=== PATIENT | male | born 1940 | race African-American/Black ===

== ENCOUNTER 2016-11-26 21:16 | Observation (INO) | payer MEDICARE ==
[~2016-11-26] VITALS: Ht 185.4 cm; Wt 82.6 kg
--- NOTE | 2016-11-26 22:07 | PHYS DOC ---
Adult General HPI HPI Patient is a 76 year old male presents emergency room via EMS for what was initially reported as a syncopal episode. I went in to see the patient, he was alone in the bed in no acute distress. I asked the patient what was here in the emergency room he said, "because I fell out." Patient had no complaints for me at the time of initial history and physical examination. Patient's daughter presents to the bedside approximately 20 minutes after initially seeing the patient. She informs me that patient was sitting in a recliner, fully alert and responsive at 1944. She states that she and her daughter went to the store and came back about an hour later. She reports that her father/the patient was not responding to her at 2044. She called EMS. She states that as patient was being handled by EMS, he became aroused. She states that at the time he was being loaded into the ambulance, he was fully alert and responding appropriately. According to both patient and his daughter, there've not been episodes like this in the past. She denies any history of cardiac disease, hypertension, hypercholesterolemia or diabetes. She denies any history of strokes or mini strokes. Patient does have a history of Parkinson's disease which she takes 2 medications for this. Now the patient, nor his daughter, report any recent illnesses or changes in medications. Review of Systems Review of Systems Constitutional: Denies fever or chills [] Eyes: Denies change in visual acuity, redness, or eye pain [] HENT: Denies nasal congestion or sore throat [] Respiratory: Denies cough or shortness of breath [] Cardiovascular: No additional information not addressed in HPI [] GI: Denies abdominal pain, nausea, vomiting, bloody stools or diarrhea [] : Denies dysuria or hematuria [] Musculoskeletal: Denies back pain or joint pain [] Integument: Denies rash or skin lesions [] Neurologic: Denies headache, focal weakness or sensory changes [] Endocrine: Denies polyuria or polydipsia [] Current Medications Current Medications Current Medications Medications (Trade) Dose Ordered Sig/Charline Start Time Stop Time Status Last Admin Dose Admin Hydralazine HCl (Apresoline) 10 mg 1X ONCE 11/26/16 22:30 11/26/16 22:31 DC 11/26/16 23:24 10 MG Sodium Chloride (Iv Sodium Chloride 0.9% 500ml Bag) 500 ml @ 500 mls/hr 1X ONCE 11/26/16 22:30 11/26/16 23:29 DC 11/26/16 22:33 500 MLS/HR Allergies Allergies Allergies Coded Allergies Type Severity Reaction Last Updated Verified No Known Drug Allergies 11/26/16 No Physical Exam Physical Exam Constitutional: Well developed, well nourished, no acute distress, non-toxic appearance. Patient is lying in a low semi-Fowlers position in no acute distress. Patient is hypertensive with a systolic pressure of 216. HENT: Normocephalic, atraumatic, bilateral external ears normal, oropharynx moist, no oral exudates, nose normal. [] Eyes: EOMI, conjunctiva normal, no discharge. Right eye with a hypertrophic, opaque lobe. Left eye is normal in appearance with a round pupil that is responsive to light. Extraocular motions are intact and 6 cardinal positions of gaze. Neck: Normal range of motion, no tenderness, supple, no stridor. Cardiovascular:Heart rate regular rhythm, grade 2 systolic murmur Lungs & Thorax: Bilateral breath sounds clear to auscultation Abdomen: Bowel sounds normal, soft, no tenderness, no masses, no pulsatile masses. [] Skin: Warm, dry, no erythema, no rash. [] Back: No tenderness, no CVA tenderness. [] Extremities: No tenderness, no cyanosis, no clubbing, ROM intact, no edema. [] Neurologic: Alert and oriented X 3, patient noted to have a fine motor tremor to bilateral upper lower extremities. He is able to move all 4 extremities without drift. He is able perform rapid alternating movement and [id number] with only experiencing the tremor. Seated Romberg is negative for drift. Patient responds spontaneously and appropriately to questions. Psychologic: Affect normal, judgement normal, mood normal. This is a very pleasant gentleman who is smiling. Current Patient Data Vital Signs Vital Signs Date Time Temp Pulse Resp B/P Pulse Ox O2 Delivery O2 Flow Rate FiO2 11/26/16 23:24 99 162/82 11/26/16 21:20 97.9 18 98 Room Air 97.9 Lab Values Laboratory Tests Test 11/26/16 23:01 11/26/16 23:08 White Blood Count 4.2x10^3/uL (4.0-11.0) Red Blood Count 4.79x10^6/uL (4.30-5.70) Hemoglobin 13.9g/dL (13.0-17.5) Hematocrit 41.7% (39.0-53.0) Mean Corpuscular Volume 87fL (79-100) Mean Corpuscular Hemoglobin 29pg (25-35) Mean Corpuscular Hemoglobin Concent 33g/dL (31-37) Red Cell Distribution Width 15.1% (11.5-14.5) H Platelet Count 152x10^3/uL (140-400) Neutrophils (%) (Auto) 63% (31-73) Lymphocytes (%) (Auto) 24% (24-48) Monocytes (%) (Auto) 11% (0-9) H Eosinophils (%) (Auto) 3% (0-3) Basophils (%) (Auto) 0% (0-3) Neutrophils # (Auto) 2.6x10^3uL (1.8-7.7) Lymphocytes # (Auto) 1.0x10^3/uL (1.0-4.8) Monocytes # (Auto) 0.4x10^3/uL (0.0-1.1) Eosinophils # (Auto) 0.1x10^3/uL (0.0-0.7) Basophils # (Auto) 0.0x10^3/uL (0.0-0.2) Sodium Level 146mmol/L (136-145) H Potassium Level 3.7mmol/L (3.5-5.1) Chloride Level 107mmol/L (98-107) Carbon Dioxide Level 29mmol/L (21-32) Anion Gap 10 (6-14) Blood Urea Nitrogen 19mg/dL (8-26) Creatinine 1.2mg/dL (0.7-1.3) Estimated GFR (Cockcroft-Gault) 70.9 BUN/Creatinine Ratio 16 (6-20) Glucose Level 93mg/dL (70-99) Calcium Level 9.2mg/dL (8.5-10.1) Magnesium Level 1.8mg/dL (1.8-2.4) Total Bilirubin 0.8mg/dL (0.2-1.0) Aspartate Amino Transferase (AST) 17U/L (15-37) Alanine Aminotransferase (ALT) 8U/L (16-63) L Alkaline Phosphatase 64U/L (46-116) Total Protein 7.8g/dL (6.4-8.2) Albumin 3.8g/dL (3.4-5.0) Albumin/Globulin Ratio 1.0 (1.0-1.7) Urine Collection Type Unknown Urine Color Yellow Urine Clarity Clear Urine pH 6.5 Urine Specific [place] 1.010 Urine Protein Negativemg/dL (NEG-TRACE) Urine Glucose (UA) Negativemg/dL (NEG) Urine Ketones (Stick) Negativemg/dL (NEG) Urine Blood Negative (NEG) Urine Nitrite Negative (NEG) Urine Bilirubin Negative (NEG) Urine Urobilinogen Dipstick 1.0mg/dL (0.2 mg/dL) Urine Leukocyte Esterase Negative (NEG) Urine RBC 1-2/HPF (0-2) Urine WBC 0/HPF (0-4) Urine Squamous Epithelial Cells Occ/LPF Urine Bacteria 0/HPF (0-FEW) Urine Hyaline Casts Occasional/HPF Urine Mucus Slight/LPF Laboratory Tests 11/26/16 23:01 Laboratory Tests 11/26/16 23:01 EKG EKG [] Radiology/Procedures Radiology/Procedures Noncontrast CT scan of patient's head shows no evidence of acute intracranial process. Portable AP chest shows no evidence of acute thoracic process. Course & Med Decision Making Course & Med Decision Making Patient's had an uneventful stay here in the emergency department. He displayed no evidence of aberrant neurologic processes. He is maintained hemodynamic stability during his stay here. Upon review of the EMS report to the nurse taking care of the patient, he was reported that patient was unresponsive and had a "low blood pressure" that rapidly returned to normal when patient was being handled and loaded into the ambulance. Family is hesitant to take patient home. Based on patient's age, medical history and event that happened tonight, patient will be admitted for observation to the telemetry unit for close monitoring. Dragon Disclaimer Dragon Disclaimer This electronic medical record was generated, in whole or in part, using a voice recognition dictation system. Departure Departure Impression: Primary Impression: Mental status alteration Disposition: ADMITTED INPATIENT Admitting Physician: Other (Dr Mathur) Condition: STABLE Referrals: JOSE GUPTA MD (PCP) STEVE SAHU Nov 26, 2016:07
[2016-11-26] MEDS ORDERED: IV NORMAL SALINE 500ML BAG 500 ML IV ONE (22:30)
[2016-11-26] MEDS ORDERED: hydrALAZINE 20 MG/ML VIAL. IVP ONE (22:30)
--- NOTE | 2016-11-26 23:02 | RAD ---
PROCEDURE CT head without intravenous contrast. HISTORY Found unresponsive at 2045 hours. Fully responsive now. Parkinson's disease. TECHNIQUE Axial images are obtained of the head from the skull base through the vertex without IV contrast Exposure: One or more of the following individualized dose reduction techniques were utilized for this examination: 1. Automated exposure control. 2. Adjustment of the mA and/or kV according to patient size. 3. Use of iterative reconstruction technique. COMPARISON None. FINDINGS The ventricles are appropriate in size, shape, and location for the patient's age.No obvious intracranial mass, mass-effect, midline shift, hemorrhage or obvious acute infarction is identified.Basilar cisterns are patent. Bone windows demonstrate no acute calvarial abnormality.The visualized paranasal sinuses appear clear. IMPRESSION No acute intracranial process. Please note that CT can be relatively insensitive to acute ischemic infarction for up to 24 hours after symptom onset. Electronically signed by: Trevor Islas MD (Nov 26, 2016 23:00:21)
[2016-11-26 23:12] LABS: BASO % 0 % (0-3); EOS % 3 % (0-3); HEMATOCRIT 41.7 % (39.0-53.0); HEMOGLOBIN 13.9 g/dL (13.0-17.5); LYMPH % 24 % (24-48); MEAN CORPUSCULAR HEMOGLOBIN 29 pg (25-35); MEAN CORPUSCULAR HGB CONC 33 g/dL (31-37); MEAN CORPUSCULAR VOLUME 87 fL (79-100); MONO % 11 % (0-9); NEUT % 63 % (31-73); PLATELET COUNT 152 x10^3/uL (140-400); RED BLOOD COUNT 4.79 x10^6/uL (4.30-5.70); RED CELL DISTRIBUTION WIDTH 15.1 % (11.5-14.5); WHITE BLOOD COUNT 4.2 x10^3/uL (4.0-11.0)
[2016-11-26 23:15] LABS: BILIRUBIN,URINE NEGATIVE (NEG); GLUCOSE,URINE NEGATIVE (NEG); NITRITE,URINE NEGATIVE (NEG); PH,URINE 6.5; PROTEIN,URINE NEGATIVE (NEG-TRACE)
[2016-11-26 23:23] LABS: BACTERIA,URINE 0 /HPF (0-FEW); SQUAMOUS EPITHELIAL CELL,UR OCC /LPF; WBC,URINE 0 /HPF (0-4)
[2016-11-26 23:28] LABS: CALCIUM 9.2 mg/dL (8.5-10.1); CREATININE 1.2 mg/dL (0.7-1.3); GFR 70.9; POTASSIUM 3.7 mmol/L (3.5-5.1)
[2016-11-26 23:31] LABS: ALBUMIN 3.8 g/dL (3.4-5.0); MAGNESIUM 1.8 mg/dL (1.8-2.4); TOTAL BILIRUBIN 0.8 mg/dL (0.2-1.0); TOTAL PROTEIN 7.8 g/dL (6.4-8.2)
--- NOTE | 2016-11-27 05:02 | ACF ---
Admit Criteria Forms Admit Criteria Forms Admit Criteria Forms X TELEMETRY CARE Telemetry Admission Guidelines (Place 'X' for any and all applicable criteria): Admission to telemetry [A] may be indicated for ANY ONE of the following(1)(2)(3 )(4)(5): [ ]I. Cardiac disease, including ANY ONE of the following (9)(10)(11)(12)(13 ): [ ]a) Postacute AR [ ]b) Low-risk patients with ST-segment elevation AR who have undergone successful percutaneous coronary intervention [ ]c) Unstable angina [ ]d) Suspected AR (until it is ruled out) [ ]e) Post cardiac surgery (first 48 to 72 hours unless complications occur) [ ]f) Acute arrhythmias (including significant tachycardia or bradycardia) [B] [ ]g) Firing of an implantable cardioverter defibrillator [C] [ ]h) Suspected pacemaker or implantable cardioverter defibrillator malfunction (10) [ ]i) New administration or adjustment of an antiarrhythmic drug [D ] [ ]j) Child admitted for acute congestive heart failure [ ]j) Long QT syndrome [ ]k) Advanced heart block (eg, second-degree Mobitz type II, third- degree heart block) [ ]l) Acute myocarditis or pericarditis [ ]m) Short-term (ambulatory or inpatient) monitoring after a cardiac procedure as indicated by ANY ONE of the following [E]: [ ]i) Electrophysiologic studies [ ]ii) Percutaneous coronary intervention with stent placement [ ]iii) Pacemaker placement with cardiac conduction defect [ ]iv) Implantable cardiac defibrillator placement [ ]II. Drug overdose or poisoning with substance that causes arrhythmias or QT prolongation (eg, phenothiazines, sympathomimetic agents, cyclic antidepressants, digitalis, antiarrhythmic drugs)(15) [ ]III. Short-term (ambulatory or inpatient) monitoring after therapeutic or diagnostic procedure requiring conscious sedation or anesthesia (eg, endoscopy, elective cardioversion) [ ]IV. Acute cerebrovascular even[F](18) [ ]V. Massive blood transfusion (eg, at least 10 units of packed red blood cells in 24 hours) [ ]. Variceal bleeding after endoscopy, sclerotherapy, or IV vasopressin [ ]VII. Uncorrected electrolyte abnormalities associated with an increased risk of dangerous arrhythmia [G]; examples include [ ]a) Hyperkalemia with attributable ECG changes [ ]b) Potassium greater than 6.5 mmol/L (mEq/L) in a patient without history of chronic renal disease [ ]c) Prolonged QT attributed to hypokalemia, hypomagnesemia, or hypocalcemia [ X]VIII.Unexplained syncope or other neurologic event suspected of being due to arrhythmia due to a finding that increases risk; examples include(19)(20)(21): [ ]a) High-risk ECG findings (eg, bifascicular block, bradycardia, abnormal QT interval, ventricular pre- excitation) [ ]b) History of previous syncope due to arrhythmia [ ]c) Abnormal ventricular function (eg, reduced ejection fraction ) [ ]d) Exertional or supine syncope [X ]e) Concerning syncope characteristics (eg, sudden loss of consciousness without prodrome) [ ]f) Family history of sudden [ ]g) Use of arrhythmogenic medication [ ]h) Suspected cardiac ischemia [ ]i) Known channelopathy (eg, long QT syndrome, Brugada syndrome, or catecholaminergic paroxysmal ventricular tachycardia) [ ]j) Known structural heart disease (eg, hypertrophic cardiomyopathy , severe valvular disease) [ ]k) Palpitations preceding syncope The original [employer] content created by [employer] has been revised. The portions of the content which have been revised are identified through the use of italic text or in bold, and [employer] has neither reviewed nor approved the modified material. All other unmodified content is copyright [employer]. Please see references footnoted in the original [employer] edition 2015 MARIANNA DAVIES Nov 27, 2016 05:02
--- NOTE | 2016-11-27 08:13 | RAD ---
Indication: Syncopal episode. Parkinson's. Technique: Upright portable chest radiograph was obtained. No comparison is available. Findings: Patient is slightly rotated. There may be minimal atelectasis in the lung bases. Heart is not enlarged. Pulmonary vasculature is mildly prominent although this could be accentuated given portable technique and low lung volume. Mild vascular congestion cannot be excluded. Degenerative changes are noted in the right shoulder. Leads overlie the patient. Impression: Low lung volume film. Minimal atelectasis in the lung bases suspected. Mild vascular congestion hard to exclude. Consider short-term follow-up PA and lateral films.
--- NOTE | 2016-11-27 09:11 | EKG ---
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
[2016-11-27] MEDS ORDERED: ONDANSETRON PF 4 MG/2 ML VIAL. IV PRN (12:45)
[2016-11-27] MEDS ORDERED: ALBUTEROL SULFATE 2.5 MG/3 ML NEBU. NEB PRN (12:45)
[2016-11-27] MEDS ORDERED: HYDROCODONE/APAP 5/325MG TABLET. PO PRN (12:45)
[2016-11-27] MEDS ORDERED: hydrALAZINE 20 MG/ML VIAL. IVP PRN (12:45)
[2016-11-27] MEDS ORDERED: ACETAMINOPHEN 325 MG TABLET. PO PRN (12:45)
--- NOTE | 2016-11-27 12:49 | PDOC1 ---
History and Physical Current Problem List Problem List Problems Medical Problems: (1) Mental status alteration Status: Acute Current Medications Current Medications Current Medications Medications (Trade) Dose Ordered Sig/Charline Start Time Stop Time Status Last Admin Dose Admin Acetaminophen (Tylenol) 325 mg PRN Q6HRS PRN 11/27/16 12:45 Acetaminophen/ Hydrocodone Bitart (Lortab 5/325) 1 tab PRN Q6HRS PRN 11/27/16 12:45 Albuterol Sulfate (Ventolin Neb Soln) 2.5 mg PRN Q4HRS PRN 11/27/16 12:45 Hydralazine HCl (Apresoline) 10 mg PRN Q4HRS PRN 11/27/16 12:45 Ondansetron HCl (Zofran) 4 mg PRN Q8HRS PRN 11/27/16 12:45 Sodium Chloride (Iv Sodium Chloride 0.9% 500ml Bag) 500 ml @ 500 mls/hr 1X ONCE 11/26/16 22:30 11/26/16 23:29 DC 11/26/16 22:33 500 MLS/HR Allergies Allergies Allergies Coded Allergies Type Severity Reaction Last Updated Verified No Known Drug Allergies 11/26/16 No ROS Review of System CONSTITUTIONAL: No fever or chills EYES: No recent changes SKIN: No rash or itching CARDIOVASCULAR: No chest pain, syncope, palpitations, or edema RESPIRATORY: No SOB or cough GASTROINTESTINAL: No nausea, vomiting or abdominal pain NEUROLOGICAL: ? seizures, ENDOCRINE: No cold or heat intolerance GENITOURINARY: No urgency or frequency of urination MUSCULOSKELETAL: No back pain or joint pain LYMPHATICS: No enlarged lymph nodes PSYCHIATRIC: No anxiety or depression Physical Exam Physical Exam GEN.: No apparent distress. Alert and oriented. HEENT: Head is normocephalic, atraumatic NECK: Supple. no jvd LUNGS: Clear to auscultation. HEART: RRR, S1, S2 present. Peripheral pulses intact ABDOMEN: Soft, nontender. Positive bowel sounds. EXTREMITIES: resting tremors present. NEUROLOGIC: Normal speech, normal tone PSYCHIATRIC: Normal affect, normal mood. SKIN: No ulcerations Vitals Vitals Vital Signs Date Time Temp Pulse Resp B/P Pulse Ox O2 Delivery O2 Flow Rate FiO2 11/27/16 10:37 85 18 172/85 100 11/27/16 06:45 Room Air 11/26/16 21:20 97.9 97.9 Labs Labs Laboratory Tests Test 11/26/16 23:01 11/26/16 23:08 11/27/16 10:51 White Blood Count 4.2x10^3/uL (4.0-11.0) Red Blood Count 4.79x10^6/uL (4.30-5.70) Hemoglobin 13.9g/dL (13.0-17.5) Hematocrit 41.7% (39.0-53.0) Mean Corpuscular Volume 87fL (79-100) Mean Corpuscular Hemoglobin 29pg (25-35) Mean Corpuscular Hemoglobin Concent 33g/dL (31-37) Red Cell Distribution Width 15.1% (11.5-14.5) Platelet Count 152x10^3/uL (140-400) Neutrophils (%) (Auto) 63% (31-73) Lymphocytes (%) (Auto) 24% (24-48) Monocytes (%) (Auto) 11% (0-9) Eosinophils (%) (Auto) 3% (0-3) Basophils (%) (Auto) 0% (0-3) Neutrophils # (Auto) 2.6x10^3uL (1.8-7.7) Lymphocytes # (Auto) 1.0x10^3/uL (1.0-4.8) Monocytes # (Auto) 0.4x10^3/uL (0.0-1.1) Eosinophils # (Auto) 0.1x10^3/uL (0.0-0.7) Basophils # (Auto) 0.0x10^3/uL (0.0-0.2) Sodium Level 146mmol/L (136-145) Potassium Level 3.7mmol/L (3.5-5.1) Chloride Level 107mmol/L (98-107) Carbon Dioxide Level 29mmol/L (21-32) Anion Gap 10 (6-14) Blood Urea Nitrogen 19mg/dL (8-26) Creatinine 1.2mg/dL (0.7-1.3) Estimated GFR (Cockcroft-Gault) 70.9 BUN/Creatinine Ratio 16 (6-20) Glucose Level 93mg/dL (70-99) Calcium Level 9.2mg/dL (8.5-10.1) Magnesium Level 1.8mg/dL (1.8-2.4) Total Bilirubin 0.8mg/dL (0.2-1.0) Aspartate Amino Transf (AST/SGOT) 17U/L (15-37) Alanine Aminotransferase (ALT/SGPT) 8U/L (16-63) Alkaline Phosphatase 64U/L (46-116) Troponin I Quantitative 0.030ng/mL (0.000-0.055) Total Protein 7.8g/dL (6.4-8.2) Albumin 3.8g/dL (3.4-5.0) Albumin/Globulin Ratio 1.0 (1.0-1.7) Triglycerides Level 40mg/dL (0-150) Cholesterol Level 135mg/dL (0-200) LDL Cholesterol, Calculated 58mg/dL (0-100) VLDL Cholesterol, Calculated 8mg/dL (0-40) HDL Cholesterol 69mg/dL (40-60) Cholesterol/HDL Ratio 2.0 Thyroid Stimulating Hormone (TSH) 1.057uIU/mL (0.358-3.74) Urine Collection Type Unknown Urine Color Yellow Urine Clarity Clear Urine pH 6.5 Urine Specific [place] 1.010 Urine Protein Negativemg/dL (NEG-TRACE) Urine Glucose (UA) Negativemg/dL (NEG) Urine Ketones (Stick) Negativemg/dL (NEG) Urine Blood Negative (NEG) Urine Nitrite Negative (NEG) Urine Bilirubin Negative (NEG) Urine Urobilinogen Dipstick 1.0mg/dL (0.2 mg/dL) Urine Leukocyte Esterase Negative (NEG) Urine RBC 1-2/HPF (0-2) Urine WBC 0/HPF (0-4) Urine Squamous Epithelial Cells Occ/LPF Urine Bacteria 0/HPF (0-FEW) Urine Hyaline Casts Occasional/HPF Urine Mucus Slight/LPF Bedside Troponin I 0.00ng/ml (<0.08) Laboratory Tests Test 11/26/16 23:01 11/26/16 23:08 11/27/16 10:51 White Blood Count 4.2x10^3/uL (4.0-11.0) Red Blood Count 4.79x10^6/uL (4.30-5.70) Hemoglobin 13.9g/dL (13.0-17.5) Hematocrit 41.7% (39.0-53.0) Mean Corpuscular Volume 87fL (79-100) Mean Corpuscular Hemoglobin 29pg (25-35) Mean Corpuscular Hemoglobin Concent 33g/dL (31-37) Red Cell Distribution Width 15.1% (11.5-14.5) Platelet Count 152x10^3/uL (140-400) Neutrophils (%) (Auto) 63% (31-73) Lymphocytes (%) (Auto) 24% (24-48) Monocytes (%) (Auto) 11% (0-9) Eosinophils (%) (Auto) 3% (0-3) Basophils (%) (Auto) 0% (0-3) Neutrophils # (Auto) 2.6x10^3uL (1.8-7.7) Lymphocytes # (Auto) 1.0x10^3/uL (1.0-4.8) Monocytes # (Auto) 0.4x10^3/uL (0.0-1.1) Eosinophils # (Auto) 0.1x10^3/uL (0.0-0.7) Basophils # (Auto) 0.0x10^3/uL (0.0-0.2) Sodium Level 146mmol/L (136-145) Potassium Level 3.7mmol/L (3.5-5.1) Chloride Level 107mmol/L (98-107) Carbon Dioxide Level 29mmol/L (21-32) Anion Gap 10 (6-14) Blood Urea Nitrogen 19mg/dL (8-26) Creatinine 1.2mg/dL (0.7-1.3) Estimated GFR (Cockcroft-Gault) 70.9 BUN/Creatinine Ratio 16 (6-20) Glucose Level 93mg/dL (70-99) Calcium Level 9.2mg/dL (8.5-10.1) Magnesium Level 1.8mg/dL (1.8-2.4) Total Bilirubin 0.8mg/dL (0.2-1.0) Aspartate Amino Transf (AST/SGOT) 17U/L (15-37) Alanine Aminotransferase (ALT/SGPT) 8U/L (16-63) Alkaline Phosphatase 64U/L (46-116) Troponin I Quantitative 0.030ng/mL (0.000-0.055) Total Protein 7.8g/dL (6.4-8.2) Albumin 3.8g/dL (3.4-5.0) Albumin/Globulin Ratio 1.0 (1.0-1.7) Triglycerides Level 40mg/dL (0-150) Cholesterol Level 135mg/dL (0-200) LDL Cholesterol, Calculated 58mg/dL (0-100) VLDL Cholesterol, Calculated 8mg/dL (0-40) HDL Cholesterol 69mg/dL (40-60) Cholesterol/HDL Ratio 2.0 Thyroid Stimulating Hormone (TSH) 1.057uIU/mL (0.358-3.74) Urine Collection Type Unknown Urine Color Yellow Urine Clarity Clear Urine pH 6.5 Urine Specific [place] 1.010 Urine Protein Negativemg/dL (NEG-TRACE) Urine Glucose (UA) Negativemg/dL (NEG) Urine Ketones (Stick) Negativemg/dL (NEG) Urine Blood Negative (NEG) Urine Nitrite Negative (NEG) Urine Bilirubin Negative (NEG) Urine Urobilinogen Dipstick 1.0mg/dL (0.2 mg/dL) Urine Leukocyte Esterase Negative (NEG) Urine RBC 1-2/HPF (0-2) Urine WBC 0/HPF (0-4) Urine Squamous Epithelial Cells Occ/LPF Urine Bacteria 0/HPF (0-FEW) Urine Hyaline Casts Occasional/HPF Urine Mucus Slight/LPF Bedside Troponin I 0.00ng/ml (<0.08) VTE Prophylaxis Ordered VTE Prophylaxis Devices: Yes VTE Pharmacological Prophylaxi: Yes IVÁN NG MD Nov 27, 2016 12:49
--- NOTE | 2016-11-27 14:19 | PDOC2 ---
CONSULT Date of Consult Date of Consult DATE: 11/27/16 TIME: 14:11 Reason for Consult Reason for Consult: SYNCOPE Referring Physician Referring Physician: DR WHALEY Identification/Chief Complaint Chief Complaint SYNCOPE History of Present Illness Reason for Visit: PT IS A PLEASANT 76 Y O GENTLEMAN THAT HAS A HX OF PARKINSON'S AND DENIES ANY CARDIAC PROBLEMS. HE WAS AT HOME AND THE FAMILY FOUND HIM UNRESPONSIVE ON A CHAIR. THEY WERE ABLE TO AROUSE HIM AND THEN BROUGHT HIM TO THE ER. SINCE ARRIVAL HE HAS BEEN ALERT, RESPONSIVE AND ORIENTED. PT IS NOT AWARE OF WHAT HAPPENED, DENIES CHEST PAINS, NO PALPITATIONS, NO DYSPNEA. Past Medical History CENTRAL NERVOUS SYSTEM: Other (PARKINSON'S) Current Problem List Problem List Problems Medical Problems: (1) Mental status alteration Status: Acute Current Medications Current Medications Current Medications Sodium Chloride (Iv Sodium Chloride 0.9% 500ml Bag) 500 ml @ 500 mls/hr 1X ONCE IV Last administered on 11/26/16 22:33; Start 11/26/16 at 22:30; Stop at 23:29; Status DC Hydralazine HCl (Apresoline) 10 mg 1X ONCE IVP Last administered on 11/26/16t 23:24; Start 11/26/16 at 22:30; Stop 11/26/16 at 22:31; Status DC Acetaminophen (Tylenol) 325 mg PRN Q6HRS PRN PO MILD PAIN / TEMP; Start at 12:45 Acetaminophen/ Hydrocodone Bitart (Lortab 5/325) 1 tab PRN Q6HRS PRN PO MODERATE TO SEVERE PAIN; Start 11/27/16 at 12:45 Hydralazine HCl (Apresoline) 10 mg PRN Q4HRS PRN IVP ELEVATED BP, SEE COMMENTS ; Start 11/27/16 at 12:45 Ondansetron HCl (Zofran) 4 mg PRN Q8HRS PRN IV NAUSEA/VOMITING; Start 11/27/16 at 12:45 Albuterol Sulfate (Ventolin Neb Soln) 2.5 mg PRN Q4HRS PRN NEB SHORTNESS OF BREATH; Start 11/27/16 at 12:45 Allergies Allergies: Coded Allergies: No Known Drug Allergies (Unverified , 11/26/16) Physical Exam General: Alert, Oriented X3, Cooperative HEENT: Mucous membr. moist/pink, Other (R EYE BLIND) Lungs: Clear to auscultation Heart: Regular rate, Normal S1, Normal S2 Abdomen: Normal bowel sounds, Soft Extremities: No edema Vitals VITALS Vital Signs Date Time Temp Pulse Resp B/P Pulse Ox O2 Delivery O2 Flow Rate FiO2 11/27/16 10:37 85 18 172/85 100 11/27/16 06:45 Room Air 11/26/16 21:20 97.9 97.9 Labs Labs Laboratory Tests Test 11/26/16 23:01 11/26/16 23:08 11/27/16 10:51 White Blood Count 4.2x10^3/uL (4.0-11.0) Red Blood Count 4.79x10^6/uL (4.30-5.70) Hemoglobin 13.9g/dL (13.0-17.5) Hematocrit 41.7% (39.0-53.0) Mean Corpuscular Volume 87fL (79-100) Mean Corpuscular Hemoglobin 29pg (25-35) Mean Corpuscular Hemoglobin Concent 33g/dL (31-37) Red Cell Distribution Width 15.1% (11.5-14.5) Platelet Count 152x10^3/uL (140-400) Neutrophils (%) (Auto) 63% (31-73) Lymphocytes (%) (Auto) 24% (24-48) Monocytes (%) (Auto) 11% (0-9) Eosinophils (%) (Auto) 3% (0-3) Basophils (%) (Auto) 0% (0-3) Neutrophils # (Auto) 2.6x10^3uL (1.8-7.7) Lymphocytes # (Auto) 1.0x10^3/uL (1.0-4.8) Monocytes # (Auto) 0.4x10^3/uL (0.0-1.1) Eosinophils # (Auto) 0.1x10^3/uL (0.0-0.7) Basophils # (Auto) 0.0x10^3/uL (0.0-0.2) Sodium Level 146mmol/L (136-145) Potassium Level 3.7mmol/L (3.5-5.1) Chloride Level 107mmol/L (98-107) Carbon Dioxide Level 29mmol/L (21-32) Anion Gap 10 (6-14) Blood Urea Nitrogen 19mg/dL (8-26) Creatinine 1.2mg/dL (0.7-1.3) Estimated GFR (Cockcroft-Gault) 70.9 BUN/Creatinine Ratio 16 (6-20) Glucose Level 93mg/dL (70-99) Calcium Level 9.2mg/dL (8.5-10.1) Magnesium Level 1.8mg/dL (1.8-2.4) Total Bilirubin 0.8mg/dL (0.2-1.0) Aspartate Amino Transf (AST/SGOT) 17U/L (15-37) Alanine Aminotransferase (ALT/SGPT) 8U/L (16-63) Alkaline Phosphatase 64U/L (46-116) Troponin I Quantitative 0.030ng/mL (0.000-0.055) Total Protein 7.8g/dL (6.4-8.2) Albumin 3.8g/dL (3.4-5.0) Albumin/Globulin Ratio 1.0 (1.0-1.7) Triglycerides Level 40mg/dL (0-150) Cholesterol Level 135mg/dL (0-200) LDL Cholesterol, Calculated 58mg/dL (0-100) VLDL Cholesterol, Calculated 8mg/dL (0-40) HDL Cholesterol 69mg/dL (40-60) Cholesterol/HDL Ratio 2.0 Thyroid Stimulating Hormone (TSH) 1.057uIU/mL (0.358-3.74) Urine Collection Type Unknown Urine Color Yellow Urine Clarity Clear Urine pH 6.5 Urine Specific [place] 1.010 Urine Protein Negativemg/dL (NEG-TRACE) Urine Glucose (UA) Negativemg/dL (NEG) Urine Ketones (Stick) Negativemg/dL (NEG) Urine Blood Negative (NEG) Urine Nitrite Negative (NEG) Urine Bilirubin Negative (NEG) Urine Urobilinogen Dipstick 1.0mg/dL (0.2 mg/dL) Urine Leukocyte Esterase Negative (NEG) Urine RBC 1-2/HPF (0-2) Urine WBC 0/HPF (0-4) Urine Squamous Epithelial Cells Occ/LPF Urine Bacteria 0/HPF (0-FEW) Urine Hyaline Casts Occasional/HPF Urine Mucus Slight/LPF Bedside Troponin I 0.00ng/ml (<0.08) Laboratory Tests Test 11/26/16 23:01 11/26/16 23:08 11/27/16 10:51 White Blood Count 4.2x10^3/uL (4.0-11.0) Red Blood Count 4.79x10^6/uL (4.30-5.70) Hemoglobin 13.9g/dL (13.0-17.5) Hematocrit 41.7% (39.0-53.0) Mean Corpuscular Volume 87fL (79-100) Mean Corpuscular Hemoglobin 29pg (25-35) Mean Corpuscular Hemoglobin Concent 33g/dL (31-37) Red Cell Distribution Width 15.1% (11.5-14.5) Platelet Count 152x10^3/uL (140-400) Neutrophils (%) (Auto) 63% (31-73) Lymphocytes (%) (Auto) 24% (24-48) Monocytes (%) (Auto) 11% (0-9) Eosinophils (%) (Auto) 3% (0-3) Basophils (%) (Auto) 0% (0-3) Neutrophils # (Auto) 2.6x10^3uL (1.8-7.7) Lymphocytes # (Auto) 1.0x10^3/uL (1.0-4.8) Monocytes # (Auto) 0.4x10^3/uL (0.0-1.1) Eosinophils # (Auto) 0.1x10^3/uL (0.0-0.7) Basophils # (Auto) 0.0x10^3/uL (0.0-0.2) Sodium Level 146mmol/L (136-145) Potassium Level 3.7mmol/L (3.5-5.1) Chloride Level 107mmol/L (98-107) Carbon Dioxide Level 29mmol/L (21-32) Anion Gap 10 (6-14) Blood Urea Nitrogen 19mg/dL (8-26) Creatinine 1.2mg/dL (0.7-1.3) Estimated GFR (Cockcroft-Gault) 70.9 BUN/Creatinine Ratio 16 (6-20) Glucose Level 93mg/dL (70-99) Calcium Level 9.2mg/dL (8.5-10.1) Magnesium Level 1.8mg/dL (1.8-2.4) Total Bilirubin 0.8mg/dL (0.2-1.0) Aspartate Amino Transf (AST/SGOT) 17U/L (15-37) Alanine Aminotransferase (ALT/SGPT) 8U/L (16-63) Alkaline Phosphatase 64U/L (46-116) Troponin I Quantitative 0.030ng/mL (0.000-0.055) Total Protein 7.8g/dL (6.4-8.2) Albumin 3.8g/dL (3.4-5.0) Albumin/Globulin Ratio 1.0 (1.0-1.7) Triglycerides Level 40mg/dL (0-150) Cholesterol Level 135mg/dL (0-200) LDL Cholesterol, Calculated 58mg/dL (0-100) VLDL Cholesterol, Calculated 8mg/dL (0-40) HDL Cholesterol 69mg/dL (40-60) Cholesterol/HDL Ratio 2.0 Thyroid Stimulating Hormone (TSH) 1.057uIU/mL (0.358-3.74) Urine Collection Type Unknown Urine Color Yellow Urine Clarity Clear Urine pH 6.5 Urine Specific [place] 1.010 Urine Protein Negativemg/dL (NEG-TRACE) Urine Glucose (UA) Negativemg/dL (NEG) Urine Ketones (Stick) Negativemg/dL (NEG) Urine Blood Negative (NEG) Urine Nitrite Negative (NEG) Urine Bilirubin Negative (NEG) Urine Urobilinogen Dipstick 1.0mg/dL (0.2 mg/dL) Urine Leukocyte Esterase Negative (NEG) Urine RBC 1-2/HPF (0-2) Urine WBC 0/HPF (0-4) Urine Squamous Epithelial Cells Occ/LPF Urine Bacteria 0/HPF (0-FEW) Urine Hyaline Casts Occasional/HPF Urine Mucus Slight/LPF Bedside Troponin I 0.00ng/ml (<0.08) Assessment/Plan Assessment/Plan PT WITH POSSIBLE SYNCOPAL EPISODE WILL GET AN ECHOCARDIOGRAM AND MONITOR. THANK YOU FOR ASKING ME TO PARTICIPATE IN THE CARE OF THIS PT. MARILYN DREW MD Nov 27, 2016 14:19
[2016-11-27 16:00] VITALS: BP 115/61
--- NOTE | 2016-11-27 16:27 | HP ---
ADMIT DATE: 11/27/2016 CHIEF COMPLAINT: Fall, questionable syncope versus seizure. HISTORY OF PRESENT ILLNESS: A 76-year-old male patient with history of Parkinson disease, brought to the hospital by EMS for not responding to questions. As per the history from granddaughter, the patient was seen with his usual activity and mental status around 7:45 p.m. on 11/26/2016. However, she went to local shop and an hour later she came back and her grandfather was not responding to her. She called EMS and at that time he became aroused. Also, this morning, granddaughter says he was lethargic for some time and his eyes are moving up and down and denies any fever, trauma or any unusual change or missing or change of medication. At the time of my examination, as per the family, the patient is at her usual state of mental health and is alert and oriented, joking with me and he wanted to go home. PAST MEDICAL HISTORY: Parkinson disease. PAST SURGICAL HISTORY: None. REVIEW OF SYSTEMS: CONSTITUTIONAL: No fever or chills. EYES: No recent vision changes. SKIN: No rash or itching. CARDIOVASCULAR: No chest pain, syncope, palpitations or edema. RESPIRATORY: No shortness of breath, cough. GASTROINTESTINAL: No nausea, vomiting, diarrhea or abdominal pain. NEUROLOGICAL: No headache, paralysis. Unresponsiveness. ENDOCRINOLOGIC: No cold or heat intolerance. GENITOURINARY: No burning with urination, no urgency. MUSCULOSKELETAL: No back pain or joint pain. LYMPHATICS: No enlarged nodes. PSYCHIATRIC: No anxiety or depression. HOME MEDICATIONS: Reviewed and reconciled ____ and to continue. ALLERGIES: NKDA. PHYSICAL EXAM: GENERAL: No apparent distress. VITAL SIGNS: At the time of examination, temperature is 97.9, pulse 85, respirations 18, blood pressure 172/85, pulse ox 100. HEENT: Head normocephalic, atraumatic. NECK: Supple. LUNGS: Clear to auscultation. HEART: Regular rate and rhythm; S1, S2 present; pulses intact. ABDOMEN: Soft and positive bowel sounds. EXTREMITIES: No cyanosis or edema. NEUROLOGIC: Normal speech and normal tone; alert and oriented x 3. There is a fine tremor present in the bilateral upper and lower extremities. No focal deficits seen PSYCHIATRIC: Normal affect, normal mood. SKIN: No ulceration. LABORATORY DATA: CBC within normal range. Chemistry: Troponin 0.030, cholesterol within normal range. Urine protein negative, nitrites negative, bilirubin negative, leukocyte esterase negative. IMAGING STUDIES: Head CT: No acute intracranial process seen. Chest x-ray, low lung volumes, minimal atelectasis in lung base is suspected. ASSESSMENT: 1. Decreased responsiveness to stimuli prior to admission. Suspicious for seizure-like activity. 2. Parkinson disease with mild tremor which is chronic. PLAN: 1. Symptoms either suggestive of hypertension or seizure activity. However, at the time of my examination, the patient is alert, oriented x 3 and back to his baseline. 2. We will order an echocardiogram. If it is normal, the patient can go home and follow up with the primary care doctor. 3. Cardiology, Dr. Contreras, has been following. I did discuss with him, no further testing is needed, I could not able to verify EKG. 4. Resume home medications. 5. IV hydration. 6. Supportive care. IVÁN NG MD DR: GOSIA/sammi JOB#: [id number] / [id number] LEEANNE
[2016-11-27] MEDS ORDERED: CARB1TAB2 PO (17:06)
[2016-11-27] MEDS ORDERED: PRAM0.255 PO (17:06)
[2016-11-27 19:20] VITALS: BP 127/68
[2016-11-27] MEDS: CARBIDOPA/LEVODOPA 25/100MG TABLET PO SCH (21:00)
[2016-11-27] MEDS: PRAMIPEXOLE 0.25 MG TABLET. PO SCH (21:00)
[2016-11-27 23:29] VITALS: BP 141/66
[2016-11-28 03:05] VITALS: BP 138/69
[2016-11-28 06:09] LABS: CALCIUM 9.3 mg/dL (8.5-10.1); CREATININE 1.1 mg/dL (0.7-1.3); GFR 78.3; POTASSIUM 3.6 mmol/L (3.5-5.1)
[2016-11-28 07:19] LABS: BASO # 0.1 x10^3/uL (0.0-0.2); BASO % 1 % (0-3); EOS % 4 % (0-3); HEMATOCRIT 32.3 % (39.0-53.0); HEMOGLOBIN 10.6 g/dL (13.0-17.5); LYMPH # 2.9 x10^3/uL (1.0-4.8); LYMPH % 38 % (24-48); MEAN CORPUSCULAR HEMOGLOBIN 28 pg (25-35); MEAN CORPUSCULAR HGB CONC 33 g/dL (31-37); MEAN CORPUSCULAR VOLUME 86 fL (79-100); MONO % 9 % (0-9); NEUT % 48 % (31-73); PLATELET COUNT 205 x10^3/uL (140-400); RED BLOOD COUNT 3.77 x10^6/uL (4.30-5.70); RED CELL DISTRIBUTION WIDTH 16.3 % (11.5-14.5); WHITE BLOOD COUNT 7.5 x10^3/uL (4.0-11.0)
[2016-11-28 07:33] VITALS: BP 135/71
[2016-11-28] MEDS: CARBIDOPA/LEVODOPA 25/100MG TABLET PO SCH ×3 (08:18→21:52)
[2016-11-28] MEDS: PRAMIPEXOLE 0.25 MG TABLET. PO SCH ×3 (08:18→21:53)
--- NOTE | 2016-11-28 10:21 | PDOC ---
PROGRESS NOTES Chief Complaint Chief Complaint LOC ASSESSMENT AND PLAN: 1. LOC: no recurrence 2. troponin leak: stable, no ACS. echo with chambers poorly visualized (?). appreciate Dr Contreras' input: monitor until tomorrow, needs O/P F/U 3. Hypernatremia: sl worse. increase free fluid 3. Dispo: home in AM when cleared by Dr Contreras Vitals Vitals Vital Signs Date Time Temp Pulse Resp B/P Pulse Ox O2 Delivery O2 Flow Rate FiO2 11/28/16 08:00 Room Air 11/28/16 07:33 98.2 75 20 135/71 97 98.2 Physical Exam General: Alert, Oriented X3, Cooperative Heart: Regular rate, Normal S1, Normal S2 Abdomen: Normal bowel sounds, Soft Extremities: No edema Labs LABS Laboratory Tests Test 11/27/16 10:51 11/28/16 01:00 11/28/16 05:00 Bedside Troponin I 0.00ng/ml (<0.08) Troponin I Quantitative 0.029ng/mL (0.000-0.055) 0.029ng/mL (0.000-0.055) White Blood Count 7.5x10^3/uL (4.0-11.0) Red Blood Count 3.77x10^6/uL (4.30-5.70) Hemoglobin 10.6g/dL (13.0-17.5) Hematocrit 32.3% (39.0-53.0) Mean Corpuscular Volume 86fL (79-100) Mean Corpuscular Hemoglobin 28pg (25-35) Mean Corpuscular Hemoglobin Concent 33g/dL (31-37) Red Cell Distribution Width 16.3% (11.5-14.5) Platelet Count 205x10^3/uL (140-400) Neutrophils (%) (Auto) 48% (31-73) Lymphocytes (%) (Auto) 38% (24-48) Monocytes (%) (Auto) 9% (0-9) Eosinophils (%) (Auto) 4% (0-3) Basophils (%) (Auto) 1% (0-3) Neutrophils # (Auto) 3.6x10^3uL (1.8-7.7) Lymphocytes # (Auto) 2.9x10^3/uL (1.0-4.8) Monocytes # (Auto) 0.7x10^3/uL (0.0-1.1) Eosinophils # (Auto) 0.3x10^3/uL (0.0-0.7) Basophils # (Auto) 0.1x10^3/uL (0.0-0.2) Sodium Level 147mmol/L (136-145) Potassium Level 3.6mmol/L (3.5-5.1) Chloride Level 108mmol/L (98-107) Carbon Dioxide Level 28mmol/L (21-32) Anion Gap 11 (6-14) Blood Urea Nitrogen 18mg/dL (8-26) Creatinine 1.1mg/dL (0.7-1.3) Estimated GFR (Cockcroft-Gault) 78.3 Glucose Level 112mg/dL (70-99) Calcium Level 9.3mg/dL (8.5-10.1) Review of Systems Review of Systems no CP or SOB or palpitations JANE WHALEY MD Nov 28, 2016 10:21
[2016-11-28 11:01] VITALS: BP 131/70
[2016-11-28 14:35] VITALS: BP 102/57
--- NOTE | 2016-11-28 15:24 | CARD ---
APPROVED REPORT EXAM: Two-dimensional and M-mode echocardiogram with Doppler and color Doppler. Other Information Quality : PoorHR: 80bpm Rhythm : NSR INDICATION Elevated Troponin 2D DIMENSIONS Left Atrium(2D)3.3 (1.6-4.0cm)Aortic Root(2D)3.2 (2.0-3.7cm) LVOT Diameter2.0 (1.8-2.4cm) M-Mode DIMENSIONS Aortic Cusp Exc1.88 (1.5-2.0cm) Aortic Valve AoV Peak Vinnie.96.1cm/sAoV VTI17.2cm AO Peak GR.3.7mmHgLVOT Peak Vinnie.87.5cm/s LVOT VTI 19.73cmAO Mean GR.2mmHg JIM (VMAX)2.59wi2CBN (VTI)3.64cm2 Pulmonary Valve PV Peak Ofotkkjp46.3cm/sPV Peak Grad.4mmHg Tricuspid Valve TR P. Mhzxnqul057xh/sRAP [id number] TR Peak Gr.90szCcZBBP26qxPu LEFT VENTRICLE The LV was poorly visualized and cannot accurately estimate the LV EF Unable to evaluate due to poor echogenic window RIGHT VENTRICLE RV was poorly visualized ATRIA LA was poorly visualized RA was poorly visualized AORTIC VALVE The aortic valve is normal in structure Doppler and Color Flow revealed mild aortic regurgitation. Th ere is no significant aortic valvular stenosis. There is no aortic valvular vegetation. MITRAL VALVE The mitral valve is normal in structure and function. There is no evidence of mitral valve prolapse. There is no mitral valve stenosis. Doppler and Color Flow revealed no mitral valve regurgitation note d. TRICUSPID VALVE The tricuspid valve is normal in structure Doppler and Color Flow revealed mild tricuspid regurgitati on. The PA pressure was estimated to be 38mmHg There is no tricuspid valve prolapse or vegetation. Th ere is no tricuspid valve stenosis. PULMONIC VALVE The pulmonary valve is normal in structure Doppler and Color Flow revealed mild pulmonic valvular reg urgitation. There is no pulmonic valvular stenosis. GREAT VESSELS Aortic root was poorly visualized PERICARDIAL EFFUSION No significant pericardial effusion was seen Critical Notification Critical Value: No <Conclusion> This is a suboptimal Echocardiogram in a pt that has a poor echogenic window. The LV was poorly visualized and cannot accurately estimate the LV EF RV was poorly visualized LA was poorly visualized RA was poorly visualized Doppler and Color Flow revealed mild aortic regurgitation. The mitral valve is normal in structure and function. Doppler and Color Flow revealed mild tricuspid regurgitation. Doppler and Color Flow revealed mild tricuspid regurgitation. The PA pressure was estimated to be 38m mHg Doppler and Color Flow revealed mild pulmonic valvular regurgitation. Aortic root was poorly visualized No significant pericardial effusion was seen
--- NOTE | 2016-11-28 15:29 | PDOC ---
PROGRESS NOTES Subjective Subjective Pt has no new complaints. No episode of syncope since admission. No significant dysrhythmias since he was started on the monitor Objective Objective Vital Signs Date Time Temp Pulse Resp B/P Pulse Ox O2 Delivery O2 Flow Rate FiO2 11/28/16 14:35 98.0 64 20 102/57 98 Room Air 98.0 Intake and Output 11/28/16 07:00 Intake Total 220 ml Output Total 0 ml Balance 220 ml Intake Oral 220 ml Output Urine Total 0 ml # Voids 1 # Bowel Movements 1 Physical Exam Physical Exam No significant changes in cardiac exam Assessment Assessment Syncope: Pt's rhythm has not shown any significant changes. The echocardiogram was a suboptimal study due to a very poor echogenic window. I would monitor until tomorrow and if stable discharge in AM to be followed as an out-pt. Problems Medical Problems: (1) Mental status alteration Status: Acute Comment Review of Relevant I have reviewed the following items ramo (where applicable) has been applied. Labs Laboratory Tests Test 11/26/16 23:01 11/26/16 23:08 11/27/16 10:51 11/28/16 01:00 White Blood Count 4.2x10^3/uL (4.0-11.0) Red Blood Count 4.79x10^6/uL (4.30-5.70) Hemoglobin 13.9g/dL (13.0-17.5) Hematocrit 41.7% (39.0-53.0) Mean Corpuscular Volume 87fL (79-100) Mean Corpuscular Hemoglobin 29pg (25-35) Mean Corpuscular Hemoglobin Concent 33g/dL (31-37) Red Cell Distribution Width 15.1% (11.5-14.5) Platelet Count 152x10^3/uL (140-400) Neutrophils (%) (Auto) 63% (31-73) Lymphocytes (%) (Auto) 24% (24-48) Monocytes (%) (Auto) 11% (0-9) Eosinophils (%) (Auto) 3% (0-3) Basophils (%) (Auto) 0% (0-3) Neutrophils # (Auto) 2.6x10^3uL (1.8-7.7) Lymphocytes # (Auto) 1.0x10^3/uL (1.0-4.8) Monocytes # (Auto) 0.4x10^3/uL (0.0-1.1) Eosinophils # (Auto) 0.1x10^3/uL (0.0-0.7) Basophils # (Auto) 0.0x10^3/uL (0.0-0.2) Sodium Level 146mmol/L (136-145) Potassium Level 3.7mmol/L (3.5-5.1) Chloride Level 107mmol/L (98-107) Carbon Dioxide Level 29mmol/L (21-32) Anion Gap 10 (6-14) Blood Urea Nitrogen 19mg/dL (8-26) Creatinine 1.2mg/dL (0.7-1.3) Estimated GFR (Cockcroft-Gault) 70.9 BUN/Creatinine Ratio 16 (6-20) Glucose Level 93mg/dL (70-99) Calcium Level 9.2mg/dL (8.5-10.1) Magnesium Level 1.8mg/dL (1.8-2.4) Total Bilirubin 0.8mg/dL (0.2-1.0) Aspartate Amino Transf (AST/SGOT) 17U/L (15-37) Alanine Aminotransferase (ALT/SGPT) 8U/L (16-63) Alkaline Phosphatase 64U/L (46-116) Troponin I Quantitative 0.030ng/mL (0.000-0.055) 0.029ng/mL (0.000-0.055) Total Protein 7.8g/dL (6.4-8.2) Albumin 3.8g/dL (3.4-5.0) Albumin/Globulin Ratio 1.0 (1.0-1.7) Triglycerides Level 40mg/dL (0-150) Cholesterol Level 135mg/dL (0-200) LDL Cholesterol, Calculated 58mg/dL (0-100) VLDL Cholesterol, Calculated 8mg/dL (0-40) HDL Cholesterol 69mg/dL (40-60) Cholesterol/HDL Ratio 2.0 Thyroid Stimulating Hormone (TSH) 1.057uIU/mL (0.358-3.74) Urine Collection Type Unknown Urine Color Yellow Urine Clarity Clear Urine pH 6.5 Urine Specific [place] 1.010 Urine Protein Negativemg/dL (NEG-TRACE) Urine Glucose (UA) Negativemg/dL (NEG) Urine Ketones (Stick) Negativemg/dL (NEG) Urine Blood Negative (NEG) Urine Nitrite Negative (NEG) Urine Bilirubin Negative (NEG) Urine Urobilinogen Dipstick 1.0mg/dL (0.2 mg/dL) Urine Leukocyte Esterase Negative (NEG) Urine RBC 1-2/HPF (0-2) Urine WBC 0/HPF (0-4) Urine Squamous Epithelial Cells Occ/LPF Urine Bacteria 0/HPF (0-FEW) Urine Hyaline Casts Occasional/HPF Urine Mucus Slight/LPF Bedside Troponin I 0.00ng/ml (<0.08) Test 11/28/16 05:00 White Blood Count 7.5x10^3/uL (4.0-11.0) Red Blood Count 3.77x10^6/uL (4.30-5.70) Hemoglobin 10.6g/dL (13.0-17.5) Hematocrit 32.3% (39.0-53.0) Mean Corpuscular Volume 86fL (79-100) Mean Corpuscular Hemoglobin 28pg (25-35) Mean Corpuscular Hemoglobin Concent 33g/dL (31-37) Red Cell Distribution Width 16.3% (11.5-14.5) Platelet Count 205x10^3/uL (140-400) Neutrophils (%) (Auto) 48% (31-73) Lymphocytes (%) (Auto) 38% (24-48) Monocytes (%) (Auto) 9% (0-9) Eosinophils (%) (Auto) 4% (0-3) Basophils (%) (Auto) 1% (0-3) Neutrophils # (Auto) 3.6x10^3uL (1.8-7.7) Lymphocytes # (Auto) 2.9x10^3/uL (1.0-4.8) Monocytes # (Auto) 0.7x10^3/uL (0.0-1.1) Eosinophils # (Auto) 0.3x10^3/uL (0.0-0.7) Basophils # (Auto) 0.1x10^3/uL (0.0-0.2) Sodium Level 147mmol/L (136-145) Potassium Level 3.6mmol/L (3.5-5.1) Chloride Level 108mmol/L (98-107) Carbon Dioxide Level 28mmol/L (21-32) Anion Gap 11 (6-14) Blood Urea Nitrogen 18mg/dL (8-26) Creatinine 1.1mg/dL (0.7-1.3) Estimated GFR (Cockcroft-Gault) 78.3 Glucose Level 112mg/dL (70-99) Calcium Level 9.3mg/dL (8.5-10.1) Troponin I Quantitative 0.029ng/mL (0.000-0.055) Laboratory Tests Test 11/28/16 01:00 11/28/16 05:00 Troponin I Quantitative 0.029ng/mL (0.000-0.055) 0.029ng/mL (0.000-0.055) White Blood Count 7.5x10^3/uL (4.0-11.0) Red Blood Count 3.77x10^6/uL (4.30-5.70) Hemoglobin 10.6g/dL (13.0-17.5) Hematocrit 32.3% (39.0-53.0) Mean Corpuscular Volume 86fL (79-100) Mean Corpuscular Hemoglobin 28pg (25-35) Mean Corpuscular Hemoglobin Concent 33g/dL (31-37) Red Cell Distribution Width 16.3% (11.5-14.5) Platelet Count 205x10^3/uL (140-400) Neutrophils (%) (Auto) 48% (31-73) Lymphocytes (%) (Auto) 38% (24-48) Monocytes (%) (Auto) 9% (0-9) Eosinophils (%) (Auto) 4% (0-3) Basophils (%) (Auto) 1% (0-3) Neutrophils # (Auto) 3.6x10^3uL (1.8-7.7) Lymphocytes # (Auto) 2.9x10^3/uL (1.0-4.8) Monocytes # (Auto) 0.7x10^3/uL (0.0-1.1) Eosinophils # (Auto) 0.3x10^3/uL (0.0-0.7) Basophils # (Auto) 0.1x10^3/uL (0.0-0.2) Sodium Level 147mmol/L (136-145) Potassium Level 3.6mmol/L (3.5-5.1) Chloride Level 108mmol/L (98-107) Carbon Dioxide Level 28mmol/L (21-32) Anion Gap 11 (6-14) Blood Urea Nitrogen 18mg/dL (8-26) Creatinine 1.1mg/dL (0.7-1.3) Estimated GFR (Cockcroft-Gault) 78.3 Glucose Level 112mg/dL (70-99) Calcium Level 9.3mg/dL (8.5-10.1) Medications Current Medications Sodium Chloride (Iv Sodium Chloride 0.9% 500ml Bag) 500 ml @ 500 mls/hr 1X ONCE IV Last administered on 11/26/16 22:33; Start 11/26/16 at 22:30; Stop at 23:29; Status DC Hydralazine HCl (Apresoline) 10 mg 1X ONCE IVP Last administered on 11/26/16 23:24; Start 11/26/16 at 22:30; Stop 11/26/16 at 22:31; Status DC Acetaminophen (Tylenol) 325 mg PRN Q6HRS PRN PO MILD PAIN / TEMP; Start at 12:45 Acetaminophen/ Hydrocodone Bitart (Lortab 5/325) 1 tab PRN Q6HRS PRN PO MODERATE TO SEVERE PAIN; Start 11/27/16 at 12:45 Hydralazine HCl (Apresoline) 10 mg PRN Q4HRS PRN IVP ELEVATED BP, SEE COMMENTS ; Start 11/27/16 at 12:45 Ondansetron HCl (Zofran) 4 mg PRN Q8HRS PRN IV NAUSEA/VOMITING; Start 11/27/16 at 12:45 Albuterol Sulfate (Ventolin Neb Soln) 2.5 mg PRN Q4HRS PRN NEB SHORTNESS OF BREATH; Start 11/27/16 at 12:45 Carbidopa/Levodopa (Sinemet 25/100) 2 tab TID PO Last administered on 14:26; Start 11/27/16 at 21:00 Pramipexole Dihydrochloride (miraPEX) 0.5 mg TID PO Last administered on 3/19/ 17at 14:26; Start 11/27/16 at 21:00 Active Scripts Active Reported Mirapex (Pramipexole Di-Hcl) 0.25 Mg Tablet 0.5 Mg PO TID Sinemet 25-100 Mg Tablet (Carbidopa/Levodopa) 1 Each Tablet 2 Tab PO TID Vitals/I & O Vital Sign - Last 24 Hours 11/27/16 11/27/16 11/27/16 11/27/16 16:00 16:00 16:45 19:20 Temp 97.7 98.0 97.7 98.0 Pulse 86 77 Resp 20 20 B/P 115/61 127/68 Pulse Ox 97 99 98 O2 Delivery Room Air Room Air Room Air Room Air 11/27/16 11/27/16 11/28/16 11/28/16 20:22 23:29 03:05 07:33 Temp 98.6 98.6 98.2 98.6 98.6 98.2 Pulse 79 66 75 Resp 20 20 20 B/P 141/66 138/69 135/71 Pulse Ox 96 98 97 O2 Delivery Room Air Room Air Room Air Room Air 11/28/16 11/28/16 11/28/16 08:00 11:01 14:35 Temp 98.0 98.0 98.0 98.0 Pulse 68 64 Resp 18 20 B/P 131/70 102/57 Pulse Ox 99 98 O2 Delivery Room Air Room Air Room Air Intake and Output 11/27/16 11/27/16 11/28/16 15:00 23:00 07:00 Intake Total 220 ml Output Total 0 ml Balance 220 ml 0 ml MARILYN DREW MD Nov 28, 2016 15:29
[2016-11-28 19:40] VITALS: BP 118/71
[2016-11-28 22:55] VITALS: BP 87/55
[2016-11-29 00:33] VITALS: BP 116/65
[2016-11-29 03:45] VITALS: BP 139/73
[2016-11-29 04:41] LABS: BASO # 0.1 x10^3/uL (0.0-0.2); BASO % 2 % (0-3); EOS % 5 % (0-3); HEMATOCRIT 35.9 % (39.0-53.0); HEMOGLOBIN 12.1 g/dL (13.0-17.5); LYMPH % 28 % (24-48); MEAN CORPUSCULAR HEMOGLOBIN 29 pg (25-35); MEAN CORPUSCULAR HGB CONC 34 g/dL (31-37); MEAN CORPUSCULAR VOLUME 87 fL (79-100); MONO % 15 % (0-9); NEUT % 50 % (31-73); PLATELET COUNT 134 x10^3/uL (140-400); RED BLOOD COUNT 4.13 x10^6/uL (4.30-5.70); RED CELL DISTRIBUTION WIDTH 14.9 % (11.5-14.5); WHITE BLOOD COUNT 3.6 x10^3/uL (4.0-11.0)
[2016-11-29 05:10] LABS: CALCIUM 8.8 mg/dL (8.5-10.1); CREATININE 1.2 mg/dL (0.7-1.3); GFR 70.9; POTASSIUM 3.4 mmol/L (3.5-5.1)
[2016-11-29 07:28] VITALS: BP 145/87
--- NOTE | 2016-11-29 10:08 | HP ---
ADMIT DATE: 11/27/2016 CHIEF COMPLAINT: Syncope. HISTORY OF PRESENT ILLNESS: The patient is a 76-year-old -[place] gentleman with past medical history of Parkinson's, who presented via EMS after being found slumped over in his chair by his family last night. The patient himself does not recall any details. Remembers sitting in his chair as his last pre-event memory. He is currently doing well, denies any chest pain, any shortness of breath or other symptoms. Denies any history of CAD. Of note, at the time of EMS arrival, he apparently was found with a low pressure that recovered fairly, quickly with recover in mental status. PAST MEDICAL HISTORY: Parkinson's. FAMILY HISTORY: Denies any history of heart disease, any Parkinson's. SOCIAL HISTORY: Lives with his , children and grandchildren are close by. 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 ALLERGIES: No known drug allergies. MEDICATIONS: Baby aspirin and carbi/ levodopa. REVIEW OF SYSTEMS: The patient relates that he is doing fine, has no complaints. PHYSICAL EXAMINATION: VITAL SIGNS: Today show a blood pressure of 160/83. Note, overnight he was in the 110s over 60s-80s, respiratory rate at 16, pulse at 82. GENERAL: This is a well-nourished 76-year-old -[place] gentleman, alert, awake, in no acute distress. 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 Oral mucosa is pink and moist. Dentition is poor. NECK: Supple, without any JVD or lymphadenopathy. LUNGS: Clear to auscultation bilaterally. HEART: Regular rate and rhythm. ABDOMEN: Has positive bowel sounds, soft, nontender, without any palpable organomegaly or masses. EXTREMITIES: Show 2+ edema in both lower extremities with chronic venous stasis changes. LABORATORY DATA: CBC with a WBC of 4.2, hemoglobin 13.9, platelets of 152. Chemistries with a BUN and creatinine of 19 and 1.2, sodium at 146. Normal LFTs. Cardiac enzymes not obtained. Chest x-ray showed low lung volumes, minimal atelectasis, mild vascular congestion is hard to exclude. CT of the head was obtained and showed no acute intracranial process. ASSESSMENT AND PLAN: The patient is a 76-year-old gentleman with signs and symptoms of peripheral vascular disease, who presented to the Emergency Room with syncope of unclear etiology. The rhythm strip was reviewed by me. He is currently in sinus rhythm. Nevertheless, etiology of syncope is unclear, have to rule out cardiac. We will obtain enzymes, EKGs and echocardiogram HASMUKH. If any positivity will obtain, cardiac consult as well. We will continue Sinemet for his Parkinson's. Obtain lipid profile as well for monitoring of cardiac risk factors status. Continue aspirin for the time being. JANE WHALEY MD DR: UR/nts JOB#: [id number] / [id number] LEEANNE
[2016-11-29 10:18] VITALS: BP 112/65
[2016-11-29] MEDS: PRAMIPEXOLE 0.25 MG TABLET. PO SCH ×2 (10:30→14:52)
[2016-11-29] MEDS: CARBIDOPA/LEVODOPA 25/100MG TABLET PO SCH ×2 (10:31→14:36)
--- NOTE | 2016-11-29 10:39 | PDOC ---
PROGRESS NOTES Subjective Subjective No acute distress overnight. Reports feeling well. Denies chest pain, shortness of breath or abd pain. Objective Objective Vital Signs Date Time Temp Pulse Resp B/P Pulse Ox O2 Delivery O2 Flow Rate FiO2 11/29/16 10:18 98.0 74 18 112/65 96 Room Air 98.0 Intake and Output 11/29/16 07:00 Intake Total 640 ml Balance 640 ml Intake Oral 640 ml # Voids 5 # Bowel Movements 2 Physical Exam Physical Exam No changes in cardiac exam Assessment Assessment Problems Medical Problems: (1) Mental status alteration Status: Acute Plan Plan of Care Syncope: Hemodynamically stable from cardiac perspective F/u as outpt in 2wks Comment Review of Relevant I have reviewed the following items ramo (where applicable) has been applied. Labs Laboratory Tests Test 11/27/16 10:51 11/28/16 01:00 11/28/16 05:00 11/29/16 03:33 Bedside Troponin I 0.00ng/ml (<0.08) Troponin I Quantitative 0.029ng/mL (0.000-0.055) 0.029ng/mL (0.000-0.055) White Blood Count 7.5x10^3/uL (4.0-11.0) 3.6x10^3/uL (4.0-11.0) Red Blood Count 3.77x10^6/uL (4.30-5.70) 4.13x10^6/uL (4.30-5.70) Hemoglobin 10.6g/dL (13.0-17.5) 12.1g/dL (13.0-17.5) Hematocrit 32.3% (39.0-53.0) 35.9% (39.0-53.0) Mean Corpuscular Volume 86fL (79-100) 87fL (79-100) Mean Corpuscular Hemoglobin 28pg (25-35) 29pg (25-35) Mean Corpuscular Hemoglobin Concent 33g/dL (31-37) 34g/dL (31-37) Red Cell Distribution Width 16.3% (11.5-14.5) 14.9% (11.5-14.5) Platelet Count 205x10^3/uL (140-400) 134x10^3/uL (140-400) Neutrophils (%) (Auto) 48% (31-73) 50% (31-73) Lymphocytes (%) (Auto) 38% (24-48) 28% (24-48) Monocytes (%) (Auto) 9% (0-9) 15% (0-9) Eosinophils (%) (Auto) 4% (0-3) 5% (0-3) Basophils (%) (Auto) 1% (0-3) 2% (0-3) Neutrophils # (Auto) 3.6x10^3uL (1.8-7.7) 1.8x10^3uL (1.8-7.7) Lymphocytes # (Auto) 2.9x10^3/uL (1.0-4.8) 1.0x10^3/uL (1.0-4.8) Monocytes # (Auto) 0.7x10^3/uL (0.0-1.1) 0.5x10^3/uL (0.0-1.1) Eosinophils # (Auto) 0.3x10^3/uL (0.0-0.7) 0.2x10^3/uL (0.0-0.7) Basophils # (Auto) 0.1x10^3/uL (0.0-0.2) 0.1x10^3/uL (0.0-0.2) Sodium Level 147mmol/L (136-145) 148mmol/L (136-145) Potassium Level 3.6mmol/L (3.5-5.1) 3.4mmol/L (3.5-5.1) Chloride Level 108mmol/L (98-107) 112mmol/L (98-107) Carbon Dioxide Level 28mmol/L (21-32) 27mmol/L (21-32) Anion Gap 11 (6-14) 9 (6-14) Blood Urea Nitrogen 18mg/dL (8-26) 22mg/dL (8-26) Creatinine 1.1mg/dL (0.7-1.3) 1.2mg/dL (0.7-1.3) Estimated GFR (Cockcroft-Gault) 78.3 70.9 Glucose Level 112mg/dL (70-99) 96mg/dL (70-99) Calcium Level 9.3mg/dL (8.5-10.1) 8.8mg/dL (8.5-10.1) Laboratory Tests Test 11/29/16 03:33 White Blood Count 3.6x10^3/uL (4.0-11.0) Red Blood Count 4.13x10^6/uL (4.30-5.70) Hemoglobin 12.1g/dL (13.0-17.5) Hematocrit 35.9% (39.0-53.0) Mean Corpuscular Volume 87fL (79-100) Mean Corpuscular Hemoglobin 29pg (25-35) Mean Corpuscular Hemoglobin Concent 34g/dL (31-37) Red Cell Distribution Width 14.9% (11.5-14.5) Platelet Count 134x10^3/uL (140-400) Neutrophils (%) (Auto) 50% (31-73) Lymphocytes (%) (Auto) 28% (24-48) Monocytes (%) (Auto) 15% (0-9) Eosinophils (%) (Auto) 5% (0-3) Basophils (%) (Auto) 2% (0-3) Neutrophils # (Auto) 1.8x10^3uL (1.8-7.7) Lymphocytes # (Auto) 1.0x10^3/uL (1.0-4.8) Monocytes # (Auto) 0.5x10^3/uL (0.0-1.1) Eosinophils # (Auto) 0.2x10^3/uL (0.0-0.7) Basophils # (Auto) 0.1x10^3/uL (0.0-0.2) Sodium Level 148mmol/L (136-145) Potassium Level 3.4mmol/L (3.5-5.1) Chloride Level 112mmol/L (98-107) Carbon Dioxide Level 27mmol/L (21-32) Anion Gap 9 (6-14) Blood Urea Nitrogen 22mg/dL (8-26) Creatinine 1.2mg/dL (0.7-1.3) Estimated GFR (Cockcroft-Gault) 70.9 Glucose Level 96mg/dL (70-99) Calcium Level 8.8mg/dL (8.5-10.1) Medications Current Medications Sodium Chloride (Iv Sodium Chloride 0.9% 500ml Bag) 500 ml @ 500 mls/hr 1X ONCE IV Last administered on 11/26/16 22:33; Start 11/26/16 at 22:30; Stop at 23:29; Status DC Hydralazine HCl (Apresoline) 10 mg 1X ONCE IVP Last administered on 11/26/16 23:24; Start 11/26/16 at 22:30; Stop 11/26/16 at 22:31; Status DC Acetaminophen (Tylenol) 325 mg PRN Q6HRS PRN PO MILD PAIN / TEMP; Start at 12:45 Acetaminophen/ Hydrocodone Bitart (Lortab 5/325) 1 tab PRN Q6HRS PRN PO MODERATE TO SEVERE PAIN; Start 11/27/16 at 12:45 Hydralazine HCl (Apresoline) 10 mg PRN Q4HRS PRN IVP ELEVATED BP, SEE COMMENTS ; Start 11/27/16 at 12:45 Ondansetron HCl (Zofran) 4 mg PRN Q8HRS PRN IV NAUSEA/VOMITING; Start 11/27/16 at 12:45 Albuterol Sulfate (Ventolin Neb Soln) 2.5 mg PRN Q4HRS PRN NEB SHORTNESS OF BREATH; Start 11/27/16 at 12:45 Carbidopa/Levodopa (Sinemet 25/100) 2 tab TID PO Last administered on 10:31; Start 11/27/16 at 21:00 Pramipexole Dihydrochloride (miraPEX) 0.5 mg TID PO Last administered on 10:30; Start 11/27/16 at 21:00 Active Scripts Active Reported Mirapex (Pramipexole Di-Hcl) 0.25 Mg Tablet 0.5 Mg PO TID Sinemet 25-100 Mg Tablet (Carbidopa/Levodopa) 1 Each Tablet 2 Tab PO TID Vitals/I & O Vital Sign - Last 24 Hours 11/28/16 11/28/16 11/28/16 11/28/16 11:01 14:35 19:40 20:00 Temp 98.0 98.0 98.0 98.0 98.0 98.0 Pulse 68 64 80 Resp 20 B/P 131/70 102/57 118/71 Pulse Ox 99 98 97 O2 Delivery Room Air Room Air Room Air Room Air 11/28/16 11/29/16 11/29/16 11/29/16 22:55 00:33 03:45 07:28 Temp 98.0 98.3 97.9 98.0 98.3 97.9 Pulse 71 82 81 Resp 18 18 20 B/P 87/55 116/65 139/73 145/87 Pulse Ox 97 97 96 O2 Delivery Room Air Room Air Room Air 11/29/16 10:18 Temp 98.0 98.0 Pulse 74 Resp 18 B/P 112/65 Pulse Ox 96 O2 Delivery Room Air Intake and Output 11/28/16 11/28/16 11/29/16 15:00 23:00 07:00 Intake Total 220 ml 420 ml Balance 220 ml 420 ml MARILYN DREW MD Nov 29, 2016 10:39
--- NOTE | 2016-11-29 11:25 | PDOC3 ---
Discharge Summary Visit Information Date of Admission: Nov 27, 2016 Date of Discharge: Nov 29, 2016 Admitting Diagnosis Comment: ASSESSMENT AND PLAN: 1. LOC: no recurrence 2. troponin leak: stable, no ACS. echo with chambers poorly visualized (?). appreciate Dr Contreras' input: monitor until tomorrow, needs O/P F/U 3. Hypernatremia: sl worse. increase free fluid 3. Dispo: home in AM when cleared by Dr Contreras Final Diagnosis Problems Medical Problems: (1) Mental status alteration Status: Acute (2) Syncope Status: Acute Brief Hospital Course Allergies Allergies Coded Allergies Type Severity Reaction Last Updated Verified No Known Drug Allergies 11/26/16 No Vital Signs Vital Signs Date Time Temp Pulse Resp B/P Pulse Ox O2 Delivery O2 Flow Rate FiO2 11/29/16 10:18 98.0 74 18 112/65 96 Room Air 98.0 Lab Results Laboratory Tests Test 11/28/16 01:00 11/28/16 05:00 11/29/16 03:33 Troponin I Quantitative 0.029ng/mL (0.000-0.055) 0.029ng/mL (0.000-0.055) White Blood Count 7.5x10^3/uL (4.0-11.0) 3.6x10^3/uL (4.0-11.0) Red Blood Count 3.77x10^6/uL (4.30-5.70) 4.13x10^6/uL (4.30-5.70) Hemoglobin 10.6g/dL (13.0-17.5) 12.1g/dL (13.0-17.5) Hematocrit 32.3% (39.0-53.0) 35.9% (39.0-53.0) Mean Corpuscular Volume 86fL (79-100) 87fL (79-100) Mean Corpuscular Hemoglobin 28pg (25-35) 29pg (25-35) Mean Corpuscular Hemoglobin Concent 33g/dL (31-37) 34g/dL (31-37) Red Cell Distribution Width 16.3% (11.5-14.5) 14.9% (11.5-14.5) Platelet Count 205x10^3/uL (140-400) 134x10^3/uL (140-400) Neutrophils (%) (Auto) 48% (31-73) 50% (31-73) Lymphocytes (%) (Auto) 38% (24-48) 28% (24-48) Monocytes (%) (Auto) 9% (0-9) 15% (0-9) Eosinophils (%) (Auto) 4% (0-3) 5% (0-3) Basophils (%) (Auto) 1% (0-3) 2% (0-3) Neutrophils # (Auto) 3.6x10^3uL (1.8-7.7) 1.8x10^3uL (1.8-7.7) Lymphocytes # (Auto) 2.9x10^3/uL (1.0-4.8) 1.0x10^3/uL (1.0-4.8) Monocytes # (Auto) 0.7x10^3/uL (0.0-1.1) 0.5x10^3/uL (0.0-1.1) Eosinophils # (Auto) 0.3x10^3/uL (0.0-0.7) 0.2x10^3/uL (0.0-0.7) Basophils # (Auto) 0.1x10^3/uL (0.0-0.2) 0.1x10^3/uL (0.0-0.2) Sodium Level 147mmol/L (136-145) 148mmol/L (136-145) Potassium Level 3.6mmol/L (3.5-5.1) 3.4mmol/L (3.5-5.1) Chloride Level 108mmol/L (98-107) 112mmol/L (98-107) Carbon Dioxide Level 28mmol/L (21-32) 27mmol/L (21-32) Anion Gap 11 (6-14) 9 (6-14) Blood Urea Nitrogen 18mg/dL (8-26) 22mg/dL (8-26) Creatinine 1.1mg/dL (0.7-1.3) 1.2mg/dL (0.7-1.3) Estimated GFR (Cockcroft-Gault) 78.3 70.9 Glucose Level 112mg/dL (70-99) 96mg/dL (70-99) Calcium Level 9.3mg/dL (8.5-10.1) 8.8mg/dL (8.5-10.1) Laboratory Tests Test 11/29/16 03:33 White Blood Count 3.6x10^3/uL (4.0-11.0) Red Blood Count 4.13x10^6/uL (4.30-5.70) Hemoglobin 12.1g/dL (13.0-17.5) Hematocrit 35.9% (39.0-53.0) Mean Corpuscular Volume 87fL (79-100) Mean Corpuscular Hemoglobin 29pg (25-35) Mean Corpuscular Hemoglobin Concent 34g/dL (31-37) Red Cell Distribution Width 14.9% (11.5-14.5) Platelet Count 134x10^3/uL (140-400) Neutrophils (%) (Auto) 50% (31-73) Lymphocytes (%) (Auto) 28% (24-48) Monocytes (%) (Auto) 15% (0-9) Eosinophils (%) (Auto) 5% (0-3) Basophils (%) (Auto) 2% (0-3) Neutrophils # (Auto) 1.8x10^3uL (1.8-7.7) Lymphocytes # (Auto) 1.0x10^3/uL (1.0-4.8) Monocytes # (Auto) 0.5x10^3/uL (0.0-1.1) Eosinophils # (Auto) 0.2x10^3/uL (0.0-0.7) Basophils # (Auto) 0.1x10^3/uL (0.0-0.2) Sodium Level 148mmol/L (136-145) Potassium Level 3.4mmol/L (3.5-5.1) Chloride Level 112mmol/L (98-107) Carbon Dioxide Level 27mmol/L (21-32) Anion Gap 9 (6-14) Blood Urea Nitrogen 22mg/dL (8-26) Creatinine 1.2mg/dL (0.7-1.3) Estimated GFR (Cockcroft-Gault) 70.9 Glucose Level 96mg/dL (70-99) Calcium Level 8.8mg/dL (8.5-10.1) Brief Hospital Course Mr. Medina is a 76 old AA male admitted for syncope,. CArdiac work up, Satyed OBS, advsied fff up 2 weeks with cards Pt seen and examined Dc 31 mins >50% counselling Dw cards and sliver former Information Condition at Discharge: Improved, Stable Follow Up: Weeks (2 weeks OP ff up cards) Disposition/Orders: D/C to Home Scheduled Carbidopa/Levodopa (Sinemet 25-100 Mg Tablet) 2 TAB PO TID (Reported) Pramipexole Di-Hcl (Mirapex) 0.5 MG PO TID (Reported) SHEILA RICHTER MD Nov 29, 2016 11:25
[2016-11-29 14:17] VITALS: BP 127/71
== END 2016-11-29 15:00 | disposition still patient (30) ==
LOC: ER 21:20 → ED HOLD 11-27 00:55 → 2 NORTH 11-27 15:55
PROVIDERS: ADMIT Internal Medicine Hematology & Oncology; ATTEND Internal Medicine Hematology & Oncology
DX: R55 Syncope and collapse (principal); G20 Parkinson's disease; R79.89 Other specified abnormal findings of blood chemistry; E87.0 Hyperosmolality and hypernatremia
CPT/HCPCS: 36415; 70450; 71010; 80048; 80053; 80061; 81001; 83735; 84443; 84484; 85027; 93005; 93306; 94250; 94760; 96361; 96374; 99285; G0378; J0360; J7040; G0379

== ENCOUNTER 2017-02-23 12:01 | Inpatient (IN) | payer MEDICARE ==
[~2017-02-23] VITALS: Ht 185.4 cm; Wt 81.6 kg
[~2017-02-23 12:01] MED LIST: CARB1TAB2 PO; PRAM0.255 PO
--- NOTE | 2017-02-23 13:04 | ED.ADGEN ---
Past Medical History Past Medical History: Other Additional Past Medical Histor: PARKINSONS, r eye injury-blind Past Surgical History: Other Additional Past Surgical Histo: R eye surgery Alcohol Use: None Drug Use: None Adult General Chief Complaint Chief Complaint: MECHANICAL FALL [facility] Patient is a 76 year old -[place] male with history of Parkinson's disease who presents with generalized weakness and recurrent falls. Patient has fallen twice in past 12 hours. Reportedly, patient hit his head, but does not recall falling or and currently denies headache. Patient states he is been weak and subsequently was unable to get out of his recliner this morning. Patient was with his and family members verified the patient has been difficulty walking and suffers balance issues. Patient does of access to walker, but does not consistently use it in his home. Patient denies headache, blurred vision, focal extremity weakness or loss of sensation. Reports increase fluid gain and lower extremities over the past 2 days with weakness of both legs. Denies chest pain shortness of breath, palpitations, abdominal pain. No fever chills nausea vomiting. No other acute symptoms or complaints. Review of Systems Review of Systems ROS as per [facility] Current Medications Current Medications Current Medications Medications (Trade) Dose Ordered Sig/Charline Start Time Stop Time Status Last Admin Dose Admin Sodium Chloride 500 ml @ 500 mls/hr 1X ONCE 02/23/17 14:30 02/23/17 15:29 Allergies Allergies Allergies Coded Allergies Type Severity Reaction Last Updated Verified No Known Drug Allergies 11/26/16 No Physical Exam Physical Exam Constitutional: Well developed, well nourished, elderly weak and fatigued appearing. HENT: Normocephalic, atraumatic, bilateral external ears normal, oropharynx moist, no oral exudates, nose normal. Eyes: PERRLA, EOMI. Neck: Normal range of motion, supple, hyperkyphosis Cardiovascular:Heart rate regular rhythm, no murmur. Bipedal edema extending to the knees. Lungs & Thorax: Bilateral breath sounds clear to auscultation Abdomen: Bowel sounds normal. Skin: Abrasions to left great toe. Back: No tenderness, no CVA tenderness. Extremities: Negative Homans sign. Neurologic: Alert and oriented X 3, normal motor function, normal sensory function, no focal deficits noted. Psychologic: Affect normal, judgement normal, mood normal. Current Patient Data Vital Signs Vital Signs Date Time Temp Pulse Resp B/P (MAP) Pulse Ox O2 Delivery O2 Flow Rate FiO2 02/23/17 12:11 97.9 82 18 122/80 (94) 98 Room Air 97.9 Lab Values Laboratory Tests Test 02/23/17 13:00 02/23/17 13:04 02/23/17 13:19 02/23/17 13:50 Sodium Level 143 mmol/L (136-145) Potassium Level 3.6 mmol/L (3.5-5.1) Chloride Level 106 mmol/L (98-107) Carbon Dioxide Level 26 mmol/L (21-32) Anion Gap 11 (6-14) Blood Urea Nitrogen 30 mg/dL (8-26) H Creatinine 1.8 mg/dL (0.7-1.3) H Estimated GFR (Cockcroft-Gault) 44.4 BUN/Creatinine Ratio 17 (6-20) Glucose Level 100 mg/dL (70-99) H Calcium Level 9.6 mg/dL (8.5-10.1) Total Bilirubin 0.9 mg/dL (0.2-1.0) Aspartate Amino Transferase (AST) 58 U/L (15-37) H Alanine Aminotransferase (ALT) 27 U/L (16-63) Alkaline Phosphatase 55 U/L (46-116) C-Reactive Protein, Quantitative 2.6 mg/L (0-3.3) Total Protein 7.2 g/dL (6.4-8.2) Albumin 3.8 g/dL (3.4-5.0) Albumin/Globulin Ratio 1.1 (1.0-1.7) White Blood Count 5.1 x10^3/uL (4.0-11.0) Red Blood Count 4.27 x10^6/uL (4.30-5.70) L Hemoglobin 12.6 g/dL (13.0-17.5) L Hematocrit 37.0 % (39.0-53.0) L Mean Corpuscular Volume 87 fL (79-100) Mean Corpuscular Hemoglobin 30 pg (25-35) Mean Corpuscular Hemoglobin Concent 34 g/dL (31-37) Red Cell Distribution Width 14.8 % (11.5-14.5) H Platelet Count 138 x10^3/uL (140-400) L Neutrophils (%) (Auto) 76 % (31-73) H Lymphocytes (%) (Auto) 13 % (24-48) L Monocytes (%) (Auto) 10 % (0-9) H Eosinophils (%) (Auto) 0 % (0-3) Basophils (%) (Auto) 1 % (0-3) Neutrophils # (Auto) 3.9 x10^3uL (1.8-7.7) Lymphocytes # (Auto) 0.7 x10^3/uL (1.0-4.8) L Monocytes # (Auto) 0.5 x10^3/uL (0.0-1.1) Eosinophils # (Auto) 0.0 x10^3/uL (0.0-0.7) Basophils # (Auto) 0.0 x10^3/uL (0.0-0.2) Troponin I Quantitative 0.078 ng/mL (0.000-0.055) QA-Ekc-N-Type Natriuretic Peptide 261 pg/mL (0-449) Glucose (Fingerstick) 90 mg/dL (70-99) Urine Collection Type Unknown Urine Color Dk yellow Urine Clarity Clear Urine pH 5.5 Urine Specific [place] >=1.030 Urine Protein 30 mg/dL (NEG-TRACE) Urine Glucose (UA) Negative mg/dL (NEG) Urine Ketones (Stick) Trace mg/dL (NEG) Urine Blood Negative (NEG) Urine Nitrite Negative (NEG) Urine Bilirubin Small (NEG) Urine Urobilinogen Dipstick 1.0 mg/dL (0.2 mg/dL) Urine Leukocyte Esterase Negative (NEG) Urine RBC 0 /HPF (0-2) Urine WBC 0 /HPF (0-4) Urine Squamous Epithelial Cells None /LPF Urine Bacteria 0 /HPF (0-FEW) Urine Hyaline Casts Many /HPF Urine Mucus Marked /LPF Laboratory Tests 02/23/17 13:04 Laboratory Tests 02/23/17 13:00 EKG EKG [EKG: Normal sinus rhythm, rate 67, no acute ST-T wave changes, QTC 443.] Radiology/Procedures Radiology/Procedures [CT head/cervical spine: No acute intercranial injury or cervical spine abnormality per radiology report. Chest x-ray: No acute cardiopulmonary disease per radiology report.] Course & Med Decision Making Course & Med Decision Making Pertinent Labs and Imaging studies reviewed. (See chart for details) [Patient generally weak without focal neurologic deficits. Denies any pain complaint from injury or fall. Imaging Tuesday is unremarkable. Review of lab analysis, shows mild dehydration. Patient's baseline chronic is 1.2, 1.8, today possibly contributing to the patient's symptoms. IV fluids given. Patient's at risk of repeat fall and injury and as such has not been good candidate for charge home from the ED. Will admit to the hospital service for further evaluation and treatment. Dragon Disclaimer Dragon Disclaimer This electronic medical record was generated, in whole or in part, using a voice recognition dictation system. RENARD IZAGUIRRE DO Feb 23, 2017 13:03
--- NOTE | 2017-02-23 13:06 | RAD ---
Portable chest, 02/23/2017: History: Weakness Comparison is made to a study from 11/26/2016. The patient is rotated to the right. The heart size and pulmonary vascularity are normal. An oblique line projecting over the right upper chest is compatible with a skin fold. There were mild bibasilar linear opacities compatible with atelectasis. There is gaseous distention of bowel loops in the upper abdomen with mild elevation of the left hemidiaphragm. Similar findings were present on the previous study. No pleural fluid is evident. IMPRESSION: 1. Mild bibasilar linear atelectasis. 2. Gaseous distention of bowel loops in the upper abdomen
[2017-02-23 13:12] LABS: BASO % 1 % (0-3); EOS % 0 % (0-3); HEMOGLOBIN 12.6 g/dL (13.0-17.5); LYMPH # 0.7 x10^3/uL (1.0-4.8); LYMPH % 13 % (24-48); MEAN CORPUSCULAR HEMOGLOBIN 30 pg (25-35); MEAN CORPUSCULAR HGB CONC 34 g/dL (31-37); MEAN CORPUSCULAR VOLUME 87 fL (79-100); MONO % 10 % (0-9); NEUT % 76 % (31-73); PLATELET COUNT 138 x10^3/uL (140-400); RED BLOOD COUNT 4.27 x10^6/uL (4.30-5.70); RED CELL DISTRIBUTION WIDTH 14.8 % (11.5-14.5); WHITE BLOOD COUNT 5.1 x10^3/uL (4.0-11.0)
[2017-02-23 13:24] LABS: CALCIUM 9.6 mg/dL (8.5-10.1); CREATININE 1.8 mg/dL (0.7-1.3); GFR 44.4; POTASSIUM 3.6 mmol/L (3.5-5.1)
[2017-02-23 13:30] LABS: ALBUMIN 3.8 g/dL (3.4-5.0); ALBUMIN/GLOBULIN RATIO 1.1 (1.0-1.7); C-REACTIVE PROTEIN 2.6 mg/L (0-3.3); TOTAL BILIRUBIN 0.9 mg/dL (0.2-1.0); TOTAL PROTEIN 7.2 g/dL (6.4-8.2)
--- NOTE | 2017-02-23 13:31 | RAD ---
CT of the head without contrast, 02/23/2017: History: Fall Comparison is made to a study from 11/26/2016. The ventricles are within normal limits in size. There is no shift of the midline structures. There is no evidence of acute intracranial hemorrhage or mass effect. There are minimal faint lucencies in the deep white matter, predominantly on the left, compatible with chronic ischemic change. There is calcific plaquing of the distal internal carotid arteries. No new intracranial abnormality is detected. IMPRESSION: No acute intracranial abnormality is detected. CT of the cervical spine without contrast, 02/23/2017: Noncontrast scans were obtained with multiplanar reconstructions produced. There is reversal of the normal cervical lordosis. There is disc space narrowing and moderate marginal spurring throughout the cervical spine. There are moderate degenerative changes involving multiple facet joints bilaterally. A minimal spondylolisthesis at C2-3 appears to be due to facet joint arthropathy. The combination of findings is causing mild central spinal stenosis and mild foraminal stenosis at multiple levels. No acute fracture or dislocation is identified. IMPRESSION: 1. Moderately severe multilevel degenerative change. 2. No acute bony abnormality is detected. PQRS Compliance Statement: One or more of the following individualized dose reduction techniques were utilized for this examination: 1. Automated exposure control 2. Adjustment of the mA and/or kV according to patient size 3. Use of iterative reconstruction technique
[2017-02-23 14:04] LABS: BILIRUBIN,URINE SMALL (NEG); GLUCOSE,URINE NEGATIVE (NEG); NITRITE,URINE NEGATIVE (NEG); PH,URINE 5.5; PROTEIN,URINE 30 mg/dL (NEG-TRACE)
[2017-02-23 14:17] LABS: BACTERIA,URINE 0 /HPF (0-FEW); RBC,URINE 0 /HPF (0-2); WBC,URINE 0 /HPF (0-4)
--- NOTE | 2017-02-23 14:24 | EKG ---
[facility] [address] [place] [id number] Test Date: 2017-02-23 Test Time: 12:41:27 Pat Name: DELANO JOHNSON Department: Room: Gender: M Co Op: : 1940 Requested By: RENARD IZAGUIRRE Order Number: [id number] Reading MD: Mert Young Measurements Intervals [place] Rate: 67 P: 34 SC: 144 QRS: -26 QRSD: 100 T: 46 QT: 416 QTc: 443 Interpretive Statements SINUS RHYTHM Electronically Signed On 02-24-2017 11:08:48 CDT by Mert Young
[2017-02-23] MEDS ORDERED: IV NORMAL SALINE 500ML BAG 500 ML IV ONE (14:30)
--- NOTE | 2017-02-23 15:08 | ACF ---
Admit Criteria Forms Admit Criteria Forms Admit Criteria Forms RENAL FAILURE, ACUTE Clinical Indications for Admission to Inpatient Care ( Place 'X' for any and all applicable criteria): Admission is indicated for ALL (if I & II) or III of the following [A](2)(3)(4)( 5)(6)(7): [ ]I. Acute renal failure as indicated by ANY ONE of the following: [ ]a) A 3-fold rise in serum creatinine from baseline [ ]b) Serum creatinine greater than 4 mg/dL (354 micromoles/L) with an acute rise greater than 0.5 mg/dL (44.2 micromoles/L) [ ]c) Reduction of more than 75% in estimated glomerular filtration rate from baseline [ ]d) Estimated glomerular filtration rate less than 35 mL/min/1.73m2 (0.59mL/sec/1.73m2)in a child up to 18 years of age [ ]e) Anuria indicated by ALL of the following: [ ]i) Adequate volume status [ ]ii) Cessation of urine output indicated by ANY ONE of the following: [ ]1) Urine output less than 0.3 mL/kg/hr for 24 hours [ ]2) Anuria (urine output less than 0.1 mL/kg/ hr) for 12 hours [ ] II. Renal failure cannot be managed in an outpatient setting or observational care setting as indicating by ANY ONE of the following: [ ]a) Altered mental status that is severe or persistent [ ]b) Volume overload or Respiratory distress (eg, clinically significant pulmonary edema) that is severe or persistent [ ]c) Cardiac arrhythmias of immediate concern [ ]d) Hemodynamic instability [ ]e) Clinically significant electrolyte abnormality that requires inpatient care (eg, hyperkalemia with severe ECG findings)[B] [ ]f) Clinically significant metabolic abnormality (eg, acidosis) that is severe or persistent [ ]g) Acute treatment of renal failure (eg, renal replacement therapy) not feasible or appropriate in observational care setting [ ]h) Clinical situation too unstable or uncertain (eg, inadequate urine output, ongoing decline in renal function, etiology unclear) [ ]i) Necessary support and caregiver ability to comply with outpatient treatment cannot be arranged in observation care timeframe (eg, within 24 hours) [ ]j) Other significant finding or clinical condition judged not to be within scope of observation care [X]III.General contraindications and/or Inappropriate clinical situations for Observational Care in patients with Acute Renal Failure, when ANY ONE of the following is required: [X]a) Prediction of prolongation of LOS based on ANY ONE of the following may be considered as a contraindication for observational care 2, 3, 4, 5, 6, 7, 8 , 9, 10, 11 [X]i) Age > 65 yrs. [ ]ii) Patient arriving by ambulance [ ]iii) Patient with high acuity [ ]iv) Patient requiring vital sign monitoring [ ]v) Patient on IV medication [ ]b) Systolic blood pressures 180mmHg 3,12 [ ]c) Patient with altered mental status including delirium and other alteration of consciousness, (3) [ ]d) Patient whose discharge disposition will be to a usp home or rehabilitation home should not be managed in Emergency Department Observation Unit. CMS rule requires 3 days hospital stay before such placement.3,13 [ ]e) Patient with failure to thrive due to broad array of etiologies 3, 16,17 [ ]f) Inability to ambulate 3,14 Extended stay beyond goal length of stay may be needed for(13) [ ]a) Continuing uremic complications [ ]b) Care for comorbidities [ ]c) acute renal failure [ ]d) Need for dialysis The original [employer] content created by [employer] has been revised. The portions of the content which have been revised are identified through the use of italic text or in bold, and [facility] has neither reviewed nor approved the modified material. All other unmodified content is copyright [employer]. Please see references footnoted in the original [employer] edition 2016 BRYON OBYKIN Feb 23, 2017 15:08
[2017-02-23] MEDS ORDERED: ONDANSETRON PF 4 MG/2 ML VIAL. IV PRN (15:30)
[2017-02-23] MEDS ORDERED: ACETAMINOPHEN 500 MG TABLET PO PRN (15:30)
--- NOTE | 2017-02-23 15:54 | PDOC1 ---
History and Physical Date of Admission Date of Admission DATE: 02/23/17 TIME: 15:46 Identification/Chief Complaint Chief Complaint falls x 2 Problems: Source Source: Caregiver, Chart review, Patient History of Present Illness History of Present Illness 76 y.o AA male, hx obtained mostly from family as pt appears very weak and has some sort of dementia, has fallen 2x in the last 12 hrs, no injuries,. Lives at home with his who is 70 plus yrs old too and cannot help him when he falls. Ambulates with walker, Dx with Parkinson's yrs ago by neurology on sinemet and pramipexole,.Claims Compliance. LAbs show concentrated urine with high specific gravity, appears clinically dry with a creat of 1.8 (baseline 1.2). Admits to poor PO intake lately but no GI loss. Dtr agreeable to SNU if needed SOme tricial trop elevation 0.07 - denies CP Only takes 2 meds at home (sinemet and pramipexole) Past Medical History Cardiovascular: No pertinent hx Pulmonary: No pertinent hx CENTRAL NERVOUS SYSTEM: Dementia, Other (parkinsons) GI: No pertinent hx Heme/Onc: No pertinent hx Hepatobiliary: No pertinent hx Psych: No pertinent hx Rheumatologic: No pertinent hx Infectious disease: No pertinent hx ENT: No pertinent hx Renal/: No pertinent hx Endocrine: No pertinent hx Dermatology: No pertinent hx Past Surgical History Past Surgical History: No pertinent history Family History Family History: No Significant Social History Smoke: No ALCOHOL: none Drugs: None Current Medications Current Medications Current Medications Sodium Chloride 500 ml @ 500 mls/hr 1X ONCE IV ; Start 02/23/17 at 14:30; Stop 02/23/17 at 15:29; Status DC Sodium Chloride 1,000 ml @ 75 mls/hr [id number] IV ; Start 02/23/17 at 15:00; Stop 02/24/17 at 14:59 Carbidopa/Levodopa (Sinemet 25/100) 2 tab TID PO ; Start 02/23/17 at 21:00 Pramipexole Dihydrochloride (miraPEX) 0.5 mg TID PO ; Start 02/23/17 at 21:00 Ondansetron HCl (Zofran) 4 mg PRN Q6HRS PRN IV NAUSEA/VOMITING; Start 02/23/17 at 15:30 Acetaminophen (Tylenol) 500 mg PRN QID PRN PO pain; Start 02/23/17 at 15:30 Active Scripts Active Reported Mirapex (Pramipexole Di-Hcl) 0.25 Mg Tablet 0.5 Mg PO TID Sinemet 25-100 Mg Tablet (Carbidopa/Levodopa) 1 Each Tablet 2 Tab PO TID Allergies Allergies: Coded Allergies: No Known Drug Allergies (Unverified , 11/26/16) ROS Review of System limited has dementia but denies all 14 pt per dtr at bedside Physical Exam General: Oriented X3, Cooperative, No acute distress, Other (oriented x 2 - knows he is in the hospital but not the name; always leaning towards his R side) HEENT: PERRLA Lungs: Clear to auscultation, Normal air movement Heart: S1S2, RRR, no thrills, no rubs Breasts: Normal, Rt breast nml w/o mass, Lt breast nml w/o mass, Nipples normal Abdomen: Normal bowel sounds, Soft, No tenderness, No hepatosplenomegaly, No masses Male Genitals Exam: normal genitalia, normal prostate Rectal Exam: not examined PELVIC: Nml ext genitalia Extremities: No clubbing, No cyanosis, No edema, Normal pulses, No tenderness/ swelling Skin: No rashes, No breakdown, No significant lesion Neuro: Normal gait, Normal speech, Strength at 5/5 X4 ext, Normal tone, Sensation intact, Cranial nerves 3-12 NL, Reflexes 2+ Psych/Mental Status: Mental status NL, Mood NL Vitals Vitals Vital Signs Date Time Temp Pulse Resp B/P (MAP) Pulse Ox O2 Delivery O2 Flow Rate FiO2 02/23/17 12:11 97.9 82 18 122/80 (94) 98 Room Air 97.9 Labs Labs Laboratory Tests Test 02/23/17 13:00 02/23/17 13:04 02/23/17 13:19 02/23/17 13:50 Sodium Level 143 mmol/L (136-145) Potassium Level 3.6 mmol/L (3.5-5.1) Chloride Level 106 mmol/L (98-107) Carbon Dioxide Level 26 mmol/L (21-32) Anion Gap 11 (6-14) Blood Urea Nitrogen 30 mg/dL (8-26) Creatinine 1.8 mg/dL (0.7-1.3) Estimated GFR (Cockcroft-Gault) 44.4 BUN/Creatinine Ratio 17 (6-20) Glucose Level 100 mg/dL (70-99) Calcium Level 9.6 mg/dL (8.5-10.1) Total Bilirubin 0.9 mg/dL (0.2-1.0) Aspartate Amino Transf (AST/SGOT) 58 U/L (15-37) Alanine Aminotransferase (ALT/SGPT) 27 U/L (16-63) Alkaline Phosphatase 55 U/L (46-116) C-Reactive Protein, Quantitative 2.6 mg/L (0-3.3) Total Protein 7.2 g/dL (6.4-8.2) Albumin 3.8 g/dL (3.4-5.0) Albumin/Globulin Ratio 1.1 (1.0-1.7) White Blood Count 5.1 x10^3/uL (4.0-11.0) Red Blood Count 4.27 x10^6/uL (4.30-5.70) Hemoglobin 12.6 g/dL (13.0-17.5) Hematocrit 37.0 % (39.0-53.0) Mean Corpuscular Volume 87 fL (79-100) Mean Corpuscular Hemoglobin 30 pg (25-35) Mean Corpuscular Hemoglobin Concent 34 g/dL (31-37) Red Cell Distribution Width 14.8 % (11.5-14.5) Platelet Count 138 x10^3/uL (140-400) Neutrophils (%) (Auto) 76 % (31-73) Lymphocytes (%) (Auto) 13 % (24-48) Monocytes (%) (Auto) 10 % (0-9) Eosinophils (%) (Auto) 0 % (0-3) Basophils (%) (Auto) 1 % (0-3) Neutrophils # (Auto) 3.9 x10^3uL (1.8-7.7) Lymphocytes # (Auto) 0.7 x10^3/uL (1.0-4.8) Monocytes # (Auto) 0.5 x10^3/uL (0.0-1.1) Eosinophils # (Auto) 0.0 x10^3/uL (0.0-0.7) Basophils # (Auto) 0.0 x10^3/uL (0.0-0.2) Troponin I Quantitative 0.078 ng/mL (0.000-0.055) XH-Qca-Y-Type Natriuretic Peptide 261 pg/mL (0-449) Glucose (Fingerstick) 90 mg/dL (70-99) Urine Collection Type Unknown Urine Color Dk yellow Urine Clarity Clear Urine pH 5.5 Urine Specific [place] >=1.030 Urine Protein 30 mg/dL (NEG-TRACE) Urine Glucose (UA) Negative mg/dL (NEG) Urine Ketones (Stick) Trace mg/dL (NEG) Urine Blood Negative (NEG) Urine Nitrite Negative (NEG) Urine Bilirubin Small (NEG) Urine Urobilinogen Dipstick 1.0 mg/dL (0.2 mg/dL) Urine Leukocyte Esterase Negative (NEG) Urine RBC 0 /HPF (0-2) Urine WBC 0 /HPF (0-4) Urine Squamous Epithelial Cells None /LPF Urine Bacteria 0 /HPF (0-FEW) Urine Hyaline Casts Many /HPF Urine Mucus Marked /LPF Test 02/23/17 14:48 Troponin I Quantitative 0.067 ng/mL (0.000-0.055) Laboratory Tests Test 02/23/17 13:00 02/23/17 13:04 02/23/17 13:19 02/23/17 13:50 Sodium Level 143 mmol/L (136-145) Potassium Level 3.6 mmol/L (3.5-5.1) Chloride Level 106 mmol/L (98-107) Carbon Dioxide Level 26 mmol/L (21-32) Anion Gap 11 (6-14) Blood Urea Nitrogen 30 mg/dL (8-26) Creatinine 1.8 mg/dL (0.7-1.3) Estimated GFR (Cockcroft-Gault) 44.4 BUN/Creatinine Ratio 17 (6-20) Glucose Level 100 mg/dL (70-99) Calcium Level 9.6 mg/dL (8.5-10.1) Total Bilirubin 0.9 mg/dL (0.2-1.0) Aspartate Amino Transf (AST/SGOT) 58 U/L (15-37) Alanine Aminotransferase (ALT/SGPT) 27 U/L (16-63) Alkaline Phosphatase 55 U/L (46-116) C-Reactive Protein, Quantitative 2.6 mg/L (0-3.3) Total Protein 7.2 g/dL (6.4-8.2) Albumin 3.8 g/dL (3.4-5.0) Albumin/Globulin Ratio 1.1 (1.0-1.7) White Blood Count 5.1 x10^3/uL (4.0-11.0) Red Blood Count 4.27 x10^6/uL (4.30-5.70) Hemoglobin 12.6 g/dL (13.0-17.5) Hematocrit 37.0 % (39.0-53.0) Mean Corpuscular Volume 87 fL (79-100) Mean Corpuscular Hemoglobin 30 pg (25-35) Mean Corpuscular Hemoglobin Concent 34 g/dL (31-37) Red Cell Distribution Width 14.8 % (11.5-14.5) Platelet Count 138 x10^3/uL (140-400) Neutrophils (%) (Auto) 76 % (31-73) Lymphocytes (%) (Auto) 13 % (24-48) Monocytes (%) (Auto) 10 % (0-9) Eosinophils (%) (Auto) 0 % (0-3) Basophils (%) (Auto) 1 % (0-3) Neutrophils # (Auto) 3.9 x10^3uL (1.8-7.7) Lymphocytes # (Auto) 0.7 x10^3/uL (1.0-4.8) Monocytes # (Auto) 0.5 x10^3/uL (0.0-1.1) Eosinophils # (Auto) 0.0 x10^3/uL (0.0-0.7) Basophils # (Auto) 0.0 x10^3/uL (0.0-0.2) Troponin I Quantitative 0.078 ng/mL (0.000-0.055) WU-Oum-U-Type Natriuretic Peptide 261 pg/mL (0-449) Glucose (Fingerstick) 90 mg/dL (70-99) Urine Collection Type Unknown Urine Color Dk yellow Urine Clarity Clear Urine pH 5.5 Urine Specific [place] >=1.030 Urine Protein 30 mg/dL (NEG-TRACE) Urine Glucose (UA) Negative mg/dL (NEG) Urine Ketones (Stick) Trace mg/dL (NEG) Urine Blood Negative (NEG) Urine Nitrite Negative (NEG) Urine Bilirubin Small (NEG) Urine Urobilinogen Dipstick 1.0 mg/dL (0.2 mg/dL) Urine Leukocyte Esterase Negative (NEG) Urine RBC 0 /HPF (0-2) Urine WBC 0 /HPF (0-4) Urine Squamous Epithelial Cells None /LPF Urine Bacteria 0 /HPF (0-FEW) Urine Hyaline Casts Many /HPF Urine Mucus Marked /LPF Test 02/23/17 14:48 Troponin I Quantitative 0.067 ng/mL (0.000-0.055) VTE Prophylaxis Ordered VTE Prophylaxis Devices: Yes VTE Pharmacological Prophylaxi: Yes Assessment/Plan Assessment/Plan 1. Frequent falls, non injury falls 2. GEn weakness 3. PArkinon's dementia and autonomic disturbance likely 4. ELSA on CKD 6. Poor PO/dehydration 7. MOd pCM 8. MIld trop leak PLAn: Admit 2 MN at least Will need 3 MN stay IVF continuous Recheck BMP maría Trend CE (second set is coming down) Nutrition conult PT/OT SW for SNU referral DVT prophy with heparin SQ SCDs Resume home meds MAy consult neuro for parkinson's Seen at ER 10 Dw family SHEILA RICHTER MD Feb 23, 2017 15:54
[2017-02-23 17:35] VITALS: BP 136/77
[2017-02-23] MEDS: IV NORMAL SALINE 1000ML BAG 1,000 ML IV SCH (17:38)
--- NOTE | 2017-02-23 18:39 | PDOC2 ---
NEUROLOGY CONSULT Date of Admission Date of Admission DATE: 02/23/17 TIME: 18:29 Reason for Consult Reason for Consult: IMPRESSION: PD Falls. Syncope ? Dementia. Renal failure. Dehydration. Right eye blindness. RECOMMENDATIONS/PLAN: Continue Sinemet 25/100 mg tid. Continue Mirapex 0.5 mg tid. Lab: see orders. Treat medical diseases. OT/PT Discussed with his daughter at bedside. HISTORY OF THE PRESENT ILLNESS: 76-y-old AA male patient with above medical diseases had a fall on 02/23 to be brought to the ER of [facility]. He stated he remembered some of his fall as he was going down the stairs. His daught said he had about 5 falls this year so far. No injury noted. His PD symptoms are about the same and no worse per his daughter. PAST MEDICAL HISTORY: Please see above. PAST SURGERY HISTORY: No major surgery recently. ALLERGY: Reviewed. MEDICATIONS: Refer to [facility] FAMILY HISTORY: Non contributory. SOCIAL HISTORY: Lives with his at home. Denies current substance and illicit drug use. REVIEW OF SYSTEMS: Constitutional: No malnutrition, weight loss, cachexia. Head: No recent traumatic brain or head injury. Skin: No edema, or rash. Ear: No infection. Eyes: Right eye blindness. Nose: No bleeding or purulent discharges. Hearing: Hearing decrease. Neck: No recent injury. Cardiac: No [place], arrhythmia.. Pulmonary: No COPD. GI: No GI ulcer, GI bleeding. Urinary/genital: UTI. Endocrinologic: No cousin face, craniofacial dysmorphism, polydactyly. Skeletomuscular: Generalized weakness. Neurological: see HP. Psychiatric: Denies drug use/abuse. Otherwise, not [id number] review of systems. PHYSICAL EXAMINATION: General appearance is in no acute distress. HEENT: Normocephalic and nontraumatic. Right eye blindness. Nose, ears, and throat are unremarkable. Neck is supple. No lymphadenopathy. No crepitus. Cardiovascular: S1, S2, regular rate and rhythm. Pulmonary: Clear to auscultation bilaterally. Abdomen: Bowel sounds are positive. Extremities: No rash, lesions, but edema in LE. No restriction of range of motion NEUROLOGICAL EXAMINATION: Awake. Oriented to place and person but not to time. Lefft pupil reactive to light stimuli. Right eye blindness. EOMI. CN: no focal findings. Muscle tone: within normal. Muscle strength: 5 UE, 4- LE DTR: 2 UE, 0-1 LE Plantar reflex: Neutral response bilaterally Gait: not examined in bed. Sensory exam: no abnormal findings. No acute cerebellar signs elicited. F-T-N test fine. Current Medications Current Medications Current Medications Sodium Chloride 500 ml @ 500 mls/hr 1X ONCE IV ; Start 02/23/17 at 14:30; Stop 02/23/17 at 15:29; Status DC Sodium Chloride 1,000 ml @ 100 mls/hr Q10H IV Last administered on 02/23/17t 17:38; Start 02/23/17 at 15:00; Stop 02/24/17 at 14:59 Carbidopa/Levodopa (Sinemet 25/100) 2 tab TID PO ; Start 02/23/17 at 21:00 Pramipexole Dihydrochloride (miraPEX) 0.5 mg TID PO ; Start 02/23/17 at 21:00 Ondansetron HCl (Zofran) 4 mg PRN Q6HRS PRN IV NAUSEA/VOMITING; Start 02/23/17 at 15:30 Acetaminophen (Tylenol) 500 mg PRN QID PRN PO pain; Start 02/23/17 at 15:30 Heparin Sodium (Porcine) (Heparin Sq) 5,000 unit Q8HRS SQ ; Start 02/23/17 at 22 :00 Active Scripts Active Reported Mirapex (Pramipexole Di-Hcl) 0.25 Mg Tablet 0.5 Mg PO TID Sinemet 25-100 Mg Tablet (Carbidopa/Levodopa) 1 Each Tablet 2 Tab PO TID Allergies Allergies: Coded Allergies: No Known Drug Allergies (Unverified , 11/26/16) Vitals VITALS Vital Signs Date Time Temp Pulse Resp B/P (MAP) Pulse Ox O2 Delivery O2 Flow Rate FiO2 02/23/17 12:11 97.9 82 18 122/80 (94) 98 Room Air 97.9 Labs Labs Laboratory Tests Test 02/23/17 13:00 02/23/17 13:04 02/23/17 13:19 02/23/17 13:50 Sodium Level 143 mmol/L (136-145) Potassium Level 3.6 mmol/L (3.5-5.1) Chloride Level 106 mmol/L (98-107) Carbon Dioxide Level 26 mmol/L (21-32) Anion Gap 11 (6-14) Blood Urea Nitrogen 30 mg/dL (8-26) Creatinine 1.8 mg/dL (0.7-1.3) Estimated GFR (Cockcroft-Gault) 44.4 BUN/Creatinine Ratio 17 (6-20) Glucose Level 100 mg/dL (70-99) Calcium Level 9.6 mg/dL (8.5-10.1) Total Bilirubin 0.9 mg/dL (0.2-1.0) Aspartate Amino Transf (AST/SGOT) 58 U/L (15-37) Alanine Aminotransferase (ALT/SGPT) 27 U/L (16-63) Alkaline Phosphatase 55 U/L (46-116) C-Reactive Protein, Quantitative 2.6 mg/L (0-3.3) Total Protein 7.2 g/dL (6.4-8.2) Albumin 3.8 g/dL (3.4-5.0) Albumin/Globulin Ratio 1.1 (1.0-1.7) White Blood Count 5.1 x10^3/uL (4.0-11.0) Red Blood Count 4.27 x10^6/uL (4.30-5.70) Hemoglobin 12.6 g/dL (13.0-17.5) Hematocrit 37.0 % (39.0-53.0) Mean Corpuscular Volume 87 fL (79-100) Mean Corpuscular Hemoglobin 30 pg (25-35) Mean Corpuscular Hemoglobin Concent 34 g/dL (31-37) Red Cell Distribution Width 14.8 % (11.5-14.5) Platelet Count 138 x10^3/uL (140-400) Neutrophils (%) (Auto) 76 % (31-73) Lymphocytes (%) (Auto) 13 % (24-48) Monocytes (%) (Auto) 10 % (0-9) Eosinophils (%) (Auto) 0 % (0-3) Basophils (%) (Auto) 1 % (0-3) Neutrophils # (Auto) 3.9 x10^3uL (1.8-7.7) Lymphocytes # (Auto) 0.7 x10^3/uL (1.0-4.8) Monocytes # (Auto) 0.5 x10^3/uL (0.0-1.1) Eosinophils # (Auto) 0.0 x10^3/uL (0.0-0.7) Basophils # (Auto) 0.0 x10^3/uL (0.0-0.2) Troponin I Quantitative 0.078 ng/mL (0.000-0.055) DT-Iez-W-Type Natriuretic Peptide 261 pg/mL (0-449) Glucose (Fingerstick) 90 mg/dL (70-99) Urine Collection Type Unknown Urine Color Dk yellow Urine Clarity Clear Urine pH 5.5 Urine Specific [place] >=1.030 Urine Protein 30 mg/dL (NEG-TRACE) Urine Glucose (UA) Negative mg/dL (NEG) Urine Ketones (Stick) Trace mg/dL (NEG) Urine Blood Negative (NEG) Urine Nitrite Negative (NEG) Urine Bilirubin Small (NEG) Urine Urobilinogen Dipstick 1.0 mg/dL (0.2 mg/dL) Urine Leukocyte Esterase Negative (NEG) Urine RBC 0 /HPF (0-2) Urine WBC 0 /HPF (0-4) Urine Squamous Epithelial Cells None /LPF Urine Bacteria 0 /HPF (0-FEW) Urine Hyaline Casts Many /HPF Urine Mucus Marked /LPF Test 02/23/17 14:48 Creatine Kinase 1636 U/L (39-308) Troponin I Quantitative 0.067 ng/mL (0.000-0.055) Thyroid Stimulating Hormone (TSH) 1.614 uIU/mL (0.358-3.74) Laboratory Tests Test 02/23/17 13:00 02/23/17 13:04 02/23/17 13:19 02/23/17 13:50 Sodium Level 143 mmol/L (136-145) Potassium Level 3.6 mmol/L (3.5-5.1) Chloride Level 106 mmol/L (98-107) Carbon Dioxide Level 26 mmol/L (21-32) Anion Gap 11 (6-14) Blood Urea Nitrogen 30 mg/dL (8-26) Creatinine 1.8 mg/dL (0.7-1.3) Estimated GFR (Cockcroft-Gault) 44.4 BUN/Creatinine Ratio 17 (6-20) Glucose Level 100 mg/dL (70-99) Calcium Level 9.6 mg/dL (8.5-10.1) Total Bilirubin 0.9 mg/dL (0.2-1.0) Aspartate Amino Transf (AST/SGOT) 58 U/L (15-37) Alanine Aminotransferase (ALT/SGPT) 27 U/L (16-63) Alkaline Phosphatase 55 U/L (46-116) C-Reactive Protein, Quantitative 2.6 mg/L (0-3.3) Total Protein 7.2 g/dL (6.4-8.2) Albumin 3.8 g/dL (3.4-5.0) Albumin/Globulin Ratio 1.1 (1.0-1.7) White Blood Count 5.1 x10^3/uL (4.0-11.0) Red Blood Count 4.27 x10^6/uL (4.30-5.70) Hemoglobin 12.6 g/dL (13.0-17.5) Hematocrit 37.0 % (39.0-53.0) Mean Corpuscular Volume 87 fL (79-100) Mean Corpuscular Hemoglobin 30 pg (25-35) Mean Corpuscular Hemoglobin Concent 34 g/dL (31-37) Red Cell Distribution Width 14.8 % (11.5-14.5) Platelet Count 138 x10^3/uL (140-400) Neutrophils (%) (Auto) 76 % (31-73) Lymphocytes (%) (Auto) 13 % (24-48) Monocytes (%) (Auto) 10 % (0-9) Eosinophils (%) (Auto) 0 % (0-3) Basophils (%) (Auto) 1 % (0-3) Neutrophils # (Auto) 3.9 x10^3uL (1.8-7.7) Lymphocytes # (Auto) 0.7 x10^3/uL (1.0-4.8) Monocytes # (Auto) 0.5 x10^3/uL (0.0-1.1) Eosinophils # (Auto) 0.0 x10^3/uL (0.0-0.7) Basophils # (Auto) 0.0 x10^3/uL (0.0-0.2) Troponin I Quantitative 0.078 ng/mL (0.000-0.055) PU-Kgf-J-Type Natriuretic Peptide 261 pg/mL (0-449) Glucose (Fingerstick) 90 mg/dL (70-99) Urine Collection Type Unknown Urine Color Dk yellow Urine Clarity Clear Urine pH 5.5 Urine Specific [place] >=1.030 Urine Protein 30 mg/dL (NEG-TRACE) Urine Glucose (UA) Negative mg/dL (NEG) Urine Ketones (Stick) Trace mg/dL (NEG) Urine Blood Negative (NEG) Urine Nitrite Negative (NEG) Urine Bilirubin Small (NEG) Urine Urobilinogen Dipstick 1.0 mg/dL (0.2 mg/dL) Urine Leukocyte Esterase Negative (NEG) Urine RBC 0 /HPF (0-2) Urine WBC 0 /HPF (0-4) Urine Squamous Epithelial Cells None /LPF Urine Bacteria 0 /HPF (0-FEW) Urine Hyaline Casts Many /HPF Urine Mucus Marked /LPF Test 02/23/17 14:48 Creatine Kinase 1636 U/L (39-308) Troponin I Quantitative 0.067 ng/mL (0.000-0.055) Thyroid Stimulating Hormone (TSH) 1.614 uIU/mL (0.358-3.74) BRIANNA CUEVAS MD Feb 23, 2017 18:39
[2017-02-23 19:00] VITALS: BP 101/62
[2017-02-23] MEDS: PRAMIPEXOLE 0.25 MG TABLET. PO SCH (20:54)
[2017-02-23] MEDS: CARBIDOPA/LEVODOPA 25/100MG TABLET PO SCH (20:54)
[2017-02-23] MEDS: HEPARIN PF for SUB-Q USE 5,000 UNIT/0.5 ML VIAL. SQ SCH (21:01)
[2017-02-23 23:00] VITALS: BP 96/62
[2017-02-24 03:00] VITALS: BP 133/82
[2017-02-24] MEDS: IV NORMAL SALINE 1000ML BAG 1,000 ML IV SCH ×2 (05:46→11:11)
[2017-02-24] MEDS: HEPARIN PF for SUB-Q USE 5,000 UNIT/0.5 ML VIAL. SQ SCH ×3 (05:50→23:08)
[2017-02-24 06:11] LABS: CALCIUM 8.7 mg/dL (8.5-10.1); CREATININE 1.3 mg/dL (0.7-1.3); GFR 64.6; POTASSIUM 3.2 mmol/L (3.5-5.1)
[2017-02-24 07:15] VITALS: BP 154/86
[2017-02-24] MEDS: CARBIDOPA/LEVODOPA 25/100MG TABLET PO SCH ×3 (08:35→20:52)
[2017-02-24] MEDS: PRAMIPEXOLE 0.25 MG TABLET. PO SCH ×3 (08:36→20:52)
[2017-02-24] MEDS ORDERED: POTASSIUM CHLORIDE 20 MEQ TABLET.ER. PO ONE (09:15)
[2017-02-24 09:27] LABS: BASO % 0 % (0-3); EOS % 3 % (0-3); HEMATOCRIT 35.5 % (39.0-53.0); HEMOGLOBIN 12.1 g/dL (13.0-17.5); LYMPH % 33 % (24-48); MEAN CORPUSCULAR HEMOGLOBIN 30 pg (25-35); MEAN CORPUSCULAR HGB CONC 34 g/dL (31-37); MEAN CORPUSCULAR VOLUME 86 fL (79-100); MONO % 17 % (0-9); NEUT % 47 % (31-73); PLATELET COUNT 129 x10^3/uL (140-400); RED BLOOD COUNT 4.11 x10^6/uL (4.30-5.70); RED CELL DISTRIBUTION WIDTH 15.3 % (11.5-14.5); WHITE BLOOD COUNT 2.9 x10^3/uL (4.0-11.0)
[2017-02-24 09:43] LABS: CKMB MASS 4.1 ng/mL (0.0-3.6)
[2017-02-24 11:00] VITALS: BP 136/83
--- NOTE | 2017-02-24 11:43 | PDOC ---
PROGRESS NOTES Assessment Assessment PD Falls. Syncope Dementia. Renal failure. Dehydration. Vit B12 insufficiency. Right eye blindness. RECOMMENDATIONS/PLAN: Continue Sinemet 25/100 mg tid. Continue Mirapex 0.5 mg tid. Add Vit B12 1 mg PO daily. Treat medical diseases. OT/PT Discussed with his daughter at bedside. HISTORY OF THE PRESENT ILLNESS: 76-y-old AA male patient with above medical diseases had a fall on 02/23 to be brought to the ER of [facility]. He stated he remembered some of his fall as he was going down the stairs. His daught said he had about 5 falls this year so far. No injury noted. His PD symptoms are about the same and no worse per his daughter. He stated on 02/24 that he felt better. PAST MEDICAL HISTORY: Please see above. PAST SURGERY HISTORY: No major surgery recently. ALLERGY: Reviewed. MEDICATIONS: Refer to [facility] FAMILY HISTORY: Non contributory. SOCIAL HISTORY: Lives with his at home. Denies current substance and illicit drug use. REVIEW OF SYSTEMS: Constitutional: No malnutrition, weight loss, cachexia. Head: No recent traumatic brain or head injury. Skin: No edema, or rash. Ear: No infection. Eyes: Right eye blindness. Nose: No bleeding or purulent discharges. Hearing: Hearing decrease. Neck: No recent injury. Cardiac: No WI, arrhythmia.. Pulmonary: No COPD. GI: No GI ulcer, GI bleeding. Urinary/genital: UTI. Endocrinologic: No cousin face, craniofacial dysmorphism, polydactyly. Skeletomuscular: Generalized weakness. Neurological: see HP. Psychiatric: Denies drug use/abuse. Otherwise, not [id number] review of systems. PHYSICAL EXAMINATION: General appearance is in no acute distress. HEENT: Normocephalic and nontraumatic. Right eye blindness. Nose, ears, and throat are unremarkable. Neck is supple. No lymphadenopathy. No crepitus. Cardiovascular: S1, S2, regular rate and rhythm. Pulmonary: Clear to auscultation bilaterally. Abdomen: Bowel sounds are positive. Extremities: No rash, lesions, but edema in LE. No restriction of range of motion NEUROLOGICAL EXAMINATION: Awake. Oriented to place and person but not to time. Lefft pupil reactive to light stimuli. Right eye blindness. EOMI. CN: no focal findings. Muscle tone: within normal. Muscle strength: 5 UE, 4- LE DTR: 2 UE, 0-1 LE Plantar reflex: Neutral response bilaterally Gait: not examined in bed. Sensory exam: no abnormal findings. No acute cerebellar signs elicited. F-T-N test fine. Objective Objective Vital Signs Date Time Temp Pulse Resp B/P (MAP) Pulse Ox O2 Delivery O2 Flow Rate FiO2 02/24/17 11:00 97.8 62 18 136/83 (100) 98 Room Air 97.8 02/24/17 07:15 99.0 Intake and Output 02/24/17 06:59 Intake Total 300 ml Output Total 50 ml Balance 250 ml Intake Oral 300 ml Output Urine Total 50 ml # Voids 2 # Bowel Movements 1 Vitals Signs Vitals VS - Last 72 Hours, by Label Date Time Temp Pulse Resp B/P (MAP) Pulse Ox O2 Delivery O2 Flow Rate FiO2 02/24/17 11:00 97.8 62 18 136/83 (100) 98 Room Air 97.8 02/24/17 07:35 Room Air 02/24/17 07:15 97.7 65 20 154/86 (108) Room Air 99.0 97.7 02/24/17 03:00 97.7 69 18 133/82 (99) 98 Room Air 97.7 02/23/17 23:00 98.2 68 18 96/62 (73) 100 Room Air 98.2 02/23/17 20:00 Room Air 02/23/17 19:00 98.3 74 18 101/62 (75) 97 Room Air 98.3 02/23/17 17:35 98.1 78 18 136/77 (96) 97 Room Air 98.1 02/23/17 17:30 Room Air 02/23/17 12:11 97.9 82 18 122/80 (94) 98 Room Air 97.9 Laboratory Laboratory Laboratory Tests Test 02/23/17 13:00 02/23/17 13:04 02/23/17 13:19 02/23/17 13:50 Sodium Level 143 mmol/L (136-145) Potassium Level 3.6 mmol/L (3.5-5.1) Chloride Level 106 mmol/L (98-107) Carbon Dioxide Level 26 mmol/L (21-32) Anion Gap 11 (6-14) Blood Urea Nitrogen 30 mg/dL (8-26) Creatinine 1.8 mg/dL (0.7-1.3) Estimated GFR (Cockcroft-Gault) 44.4 BUN/Creatinine Ratio 17 (6-20) Glucose Level 100 mg/dL (70-99) Calcium Level 9.6 mg/dL (8.5-10.1) Total Bilirubin 0.9 mg/dL (0.2-1.0) Aspartate Amino Transf (AST/SGOT) 58 U/L (15-37) Alanine Aminotransferase (ALT/SGPT) 27 U/L (16-63) Alkaline Phosphatase 55 U/L (46-116) C-Reactive Protein, Quantitative 2.6 mg/L (0-3.3) Total Protein 7.2 g/dL (6.4-8.2) Albumin 3.8 g/dL (3.4-5.0) Albumin/Globulin Ratio 1.1 (1.0-1.7) White Blood Count 5.1 x10^3/uL (4.0-11.0) Red Blood Count 4.27 x10^6/uL (4.30-5.70) Hemoglobin 12.6 g/dL (13.0-17.5) Hematocrit 37.0 % (39.0-53.0) Mean Corpuscular Volume 87 fL (79-100) Mean Corpuscular Hemoglobin 30 pg (25-35) Mean Corpuscular Hemoglobin Concent 34 g/dL (31-37) Red Cell Distribution Width 14.8 % (11.5-14.5) Platelet Count 138 x10^3/uL (140-400) Neutrophils (%) (Auto) 76 % (31-73) Lymphocytes (%) (Auto) 13 % (24-48) Monocytes (%) (Auto) 10 % (0-9) Eosinophils (%) (Auto) 0 % (0-3) Basophils (%) (Auto) 1 % (0-3) Neutrophils # (Auto) 3.9 x10^3uL (1.8-7.7) Lymphocytes # (Auto) 0.7 x10^3/uL (1.0-4.8) Monocytes # (Auto) 0.5 x10^3/uL (0.0-1.1) Eosinophils # (Auto) 0.0 x10^3/uL (0.0-0.7) Basophils # (Auto) 0.0 x10^3/uL (0.0-0.2) Troponin I Quantitative 0.078 ng/mL (0.000-0.055) QQ-Lbo-X-Type Natriuretic Peptide 261 pg/mL (0-449) Vitamin B12 Level 233 pg/mL (247-911) Glucose (Fingerstick) 90 mg/dL (70-99) Urine Collection Type Unknown Urine Color Dk yellow Urine Clarity Clear Urine pH 5.5 Urine Specific [place] >=1.030 Urine Protein 30 mg/dL (NEG-TRACE) Urine Glucose (UA) Negative mg/dL (NEG) Urine Ketones (Stick) Trace mg/dL (NEG) Urine Blood Negative (NEG) Urine Nitrite Negative (NEG) Urine Bilirubin Small (NEG) Urine Urobilinogen Dipstick 1.0 mg/dL (0.2 mg/dL) Urine Leukocyte Esterase Negative (NEG) Urine RBC 0 /HPF (0-2) Urine WBC 0 /HPF (0-4) Urine Squamous Epithelial Cells None /LPF Urine Bacteria 0 /HPF (0-FEW) Urine Hyaline Casts Many /HPF Urine Mucus Marked /LPF Test 02/23/17 14:48 02/24/17 05:50 Creatine Kinase 1636 U/L (39-308) 1103 U/L (39-308) Troponin I Quantitative 0.067 ng/mL (0.000-0.055) 0.029 ng/mL (0.000-0.055) Thyroid Stimulating Hormone (TSH) 1.614 uIU/mL (0.358-3.74) White Blood Count 2.9 x10^3/uL (4.0-11.0) Red Blood Count 4.11 x10^6/uL (4.30-5.70) Hemoglobin 12.1 g/dL (13.0-17.5) Hematocrit 35.5 % (39.0-53.0) Mean Corpuscular Volume 86 fL (79-100) Mean Corpuscular Hemoglobin 30 pg (25-35) Mean Corpuscular Hemoglobin Concent 34 g/dL (31-37) Red Cell Distribution Width 15.3 % (11.5-14.5) Platelet Count 129 x10^3/uL (140-400) Neutrophils (%) (Auto) 47 % (31-73) Lymphocytes (%) (Auto) 33 % (24-48) Monocytes (%) (Auto) 17 % (0-9) Eosinophils (%) (Auto) 3 % (0-3) Basophils (%) (Auto) 0 % (0-3) Neutrophils # (Auto) 1.4 x10^3uL (1.8-7.7) Lymphocytes # (Auto) 1.0 x10^3/uL (1.0-4.8) Monocytes # (Auto) 0.5 x10^3/uL (0.0-1.1) Eosinophils # (Auto) 0.1 x10^3/uL (0.0-0.7) Basophils # (Auto) 0.0 x10^3/uL (0.0-0.2) Sodium Level 141 mmol/L (136-145) Potassium Level 3.2 mmol/L (3.5-5.1) Chloride Level 107 mmol/L (98-107) Carbon Dioxide Level 27 mmol/L (21-32) Anion Gap 7 (6-14) Blood Urea Nitrogen 25 mg/dL (8-26) Creatinine 1.3 mg/dL (0.7-1.3) Estimated GFR (Cockcroft-Gault) 64.6 Glucose Level 88 mg/dL (70-99) Calcium Level 8.7 mg/dL (8.5-10.1) Creatine Kinase MB (Mass) 4.1 ng/mL (0.0-3.6) Creatine Kinase MB Relative Index 0.4 % (0-4) Medication Medications Current Medications Acetaminophen (Tylenol) 500 mg PRN QID PRN PO pain; Start 02/23/17 at 15:30 Carbidopa/Levodopa (Sinemet 25/100) 2 tab TID PO Last administered on 08:35; Start 02/23/17 at 21:00 Heparin Sodium (Porcine) (Heparin Sq) 5,000 unit Q8HRS SQ Last administered on 02/24/17 05:50; Start 02/23/17 at 22:00 Ondansetron HCl (Zofran) 4 mg PRN Q6HRS PRN IV NAUSEA/VOMITING; Start 02/23/17 at 15:30 Potassium Chloride (Klor-Con) 40 meq 1X ONCE PO Last administered on 10:45; Start 02/24/17 at 09:15; Stop 02/24/17 at 09:16; Status DC Pramipexole Dihydrochloride (miraPEX) 0.5 mg TID PO Last administered on 08:36; Start 02/23/17 at 21:00 Sodium Chloride 500 ml @ 500 mls/hr 1X ONCE IV ; Start 02/23/17 at 14:30; Stop 02/23/17 at 15:29; Status DC Sodium Chloride 1,000 ml @ 100 mls/hr Q10H IV Last administered on 02/24/17 05:46; Start 02/23/17 at 15:00; Stop 02/24/17 at 14:59 Comment Review of Relevant I have reviewed the following items ramo (where applicable) has been applied. BRIANNA CUEVAS MD Feb 24, 2017 11:43
--- NOTE | 2017-02-24 12:26 | PDOC ---
PROGRESS NOTES Chief Complaint Chief Complaint Assessment/Plan 1. Frequent falls, non injury falls 2. GEn weakness 3. 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 Poor PO/dehydration 7. MOd pCM 8. MIld trop leak with elsa 9. vitb12 deficiency PLAn: fu with neuro cont PD meds vitb12 1mg daily po ptot dvt ppx replete K SW involve , snf in 2ds History of Present Illness History of Present Illness feels ok dosenot remember fall Vitals Vitals Vital Signs Date Time Temp Pulse Resp B/P (MAP) Pulse Ox O2 Delivery O2 Flow Rate FiO2 02/24/17 11:00 97.8 62 18 136/83 (100) 98 Room Air 97.8 02/24/17 07:15 99.0 Physical Exam General: Alert, Oriented X3, Cooperative, No acute distress, Other (oriented x 2 - knows he is in the hospital but not the name; always leaning towards his R side) Heart: Regular rate, Normal S1, Normal S2 Lungs: Clear Abdomen: Normal bowel sounds, Soft, No tenderness, No hepatosplenomegaly, No masses Extremities: No clubbing, No cyanosis, No edema, Normal pulses, No tenderness/ swelling Skin: No rashes, No breakdown, No significant lesion Labs LABS Laboratory Tests Test 02/23/17 13:00 02/23/17 13:04 02/23/17 13:19 02/23/17 13:50 Sodium Level 143 mmol/L (136-145) Potassium Level 3.6 mmol/L (3.5-5.1) Chloride Level 106 mmol/L (98-107) Carbon Dioxide Level 26 mmol/L (21-32) Anion Gap 11 (6-14) Blood Urea Nitrogen 30 mg/dL (8-26) Creatinine 1.8 mg/dL (0.7-1.3) Estimated GFR (Cockcroft-Gault) 44.4 BUN/Creatinine Ratio 17 (6-20) Glucose Level 100 mg/dL (70-99) Calcium Level 9.6 mg/dL (8.5-10.1) Total Bilirubin 0.9 mg/dL (0.2-1.0) Aspartate Amino Transf (AST/SGOT) 58 U/L (15-37) Alanine Aminotransferase (ALT/SGPT) 27 U/L (16-63) Alkaline Phosphatase 55 U/L (46-116) C-Reactive Protein, Quantitative 2.6 mg/L (0-3.3) Total Protein 7.2 g/dL (6.4-8.2) Albumin 3.8 g/dL (3.4-5.0) Albumin/Globulin Ratio 1.1 (1.0-1.7) White Blood Count 5.1 x10^3/uL (4.0-11.0) Red Blood Count 4.27 x10^6/uL (4.30-5.70) Hemoglobin 12.6 g/dL (13.0-17.5) Hematocrit 37.0 % (39.0-53.0) Mean Corpuscular Volume 87 fL (79-100) Mean Corpuscular Hemoglobin 30 pg (25-35) Mean Corpuscular Hemoglobin Concent 34 g/dL (31-37) Red Cell Distribution Width 14.8 % (11.5-14.5) Platelet Count 138 x10^3/uL (140-400) Neutrophils (%) (Auto) 76 % (31-73) Lymphocytes (%) (Auto) 13 % (24-48) Monocytes (%) (Auto) 10 % (0-9) Eosinophils (%) (Auto) 0 % (0-3) Basophils (%) (Auto) 1 % (0-3) Neutrophils # (Auto) 3.9 x10^3uL (1.8-7.7) Lymphocytes # (Auto) 0.7 x10^3/uL (1.0-4.8) Monocytes # (Auto) 0.5 x10^3/uL (0.0-1.1) Eosinophils # (Auto) 0.0 x10^3/uL (0.0-0.7) Basophils # (Auto) 0.0 x10^3/uL (0.0-0.2) Troponin I Quantitative 0.078 ng/mL (0.000-0.055) XX-Hoo-F-Type Natriuretic Peptide 261 pg/mL (0-449) Vitamin B12 Level 233 pg/mL (247-911) Glucose (Fingerstick) 90 mg/dL (70-99) Urine Collection Type Unknown Urine Color Dk yellow Urine Clarity Clear Urine pH 5.5 Urine Specific [place] >=1.030 Urine Protein 30 mg/dL (NEG-TRACE) Urine Glucose (UA) Negative mg/dL (NEG) Urine Ketones (Stick) Trace mg/dL (NEG) Urine Blood Negative (NEG) Urine Nitrite Negative (NEG) Urine Bilirubin Small (NEG) Urine Urobilinogen Dipstick 1.0 mg/dL (0.2 mg/dL) Urine Leukocyte Esterase Negative (NEG) Urine RBC 0 /HPF (0-2) Urine WBC 0 /HPF (0-4) Urine Squamous Epithelial Cells None /LPF Urine Bacteria 0 /HPF (0-FEW) Urine Hyaline Casts Many /HPF Urine Mucus Marked /LPF Test 02/23/17 14:48 02/24/17 05:50 Creatine Kinase 1636 U/L (39-308) 1103 U/L (39-308) Troponin I Quantitative 0.067 ng/mL (0.000-0.055) 0.029 ng/mL (0.000-0.055) Thyroid Stimulating Hormone (TSH) 1.614 uIU/mL (0.358-3.74) White Blood Count 2.9 x10^3/uL (4.0-11.0) Red Blood Count 4.11 x10^6/uL (4.30-5.70) Hemoglobin 12.1 g/dL (13.0-17.5) Hematocrit 35.5 % (39.0-53.0) Mean Corpuscular Volume 86 fL (79-100) Mean Corpuscular Hemoglobin 30 pg (25-35) Mean Corpuscular Hemoglobin Concent 34 g/dL (31-37) Red Cell Distribution Width 15.3 % (11.5-14.5) Platelet Count 129 x10^3/uL (140-400) Neutrophils (%) (Auto) 47 % (31-73) Lymphocytes (%) (Auto) 33 % (24-48) Monocytes (%) (Auto) 17 % (0-9) Eosinophils (%) (Auto) 3 % (0-3) Basophils (%) (Auto) 0 % (0-3) Neutrophils # (Auto) 1.4 x10^3uL (1.8-7.7) Lymphocytes # (Auto) 1.0 x10^3/uL (1.0-4.8) Monocytes # (Auto) 0.5 x10^3/uL (0.0-1.1) Eosinophils # (Auto) 0.1 x10^3/uL (0.0-0.7) Basophils # (Auto) 0.0 x10^3/uL (0.0-0.2) Sodium Level 141 mmol/L (136-145) Potassium Level 3.2 mmol/L (3.5-5.1) Chloride Level 107 mmol/L (98-107) Carbon Dioxide Level 27 mmol/L (21-32) Anion Gap 7 (6-14) Blood Urea Nitrogen 25 mg/dL (8-26) Creatinine 1.3 mg/dL (0.7-1.3) Estimated GFR (Cockcroft-Gault) 64.6 Glucose Level 88 mg/dL (70-99) Calcium Level 8.7 mg/dL (8.5-10.1) Creatine Kinase MB (Mass) 4.1 ng/mL (0.0-3.6) Creatine Kinase MB Relative Index 0.4 % (0-4) Review of Systems Review of Systems no fever, chills, sob or chest pain Assessment and Plan Assessmemt and Plan Problems Medical Problems: (1) Acute kidney injury Status: Acute (2) Generalized weakness Status: Acute Problems: Comment Review of Relevant I have reviewed the following items ramo (where applicable) has been applied. Labs Laboratory Tests Test 02/23/17 13:00 02/23/17 13:04 02/23/17 13:19 02/23/17 13:50 Sodium Level 143 mmol/L (136-145) Potassium Level 3.6 mmol/L (3.5-5.1) Chloride Level 106 mmol/L (98-107) Carbon Dioxide Level 26 mmol/L (21-32) Anion Gap 11 (6-14) Blood Urea Nitrogen 30 mg/dL (8-26) Creatinine 1.8 mg/dL (0.7-1.3) Estimated GFR (Cockcroft-Gault) 44.4 BUN/Creatinine Ratio 17 (6-20) Glucose Level 100 mg/dL (70-99) Calcium Level 9.6 mg/dL (8.5-10.1) Total Bilirubin 0.9 mg/dL (0.2-1.0) Aspartate Amino Transf (AST/SGOT) 58 U/L (15-37) Alanine Aminotransferase (ALT/SGPT) 27 U/L (16-63) Alkaline Phosphatase 55 U/L (46-116) C-Reactive Protein, Quantitative 2.6 mg/L (0-3.3) Total Protein 7.2 g/dL (6.4-8.2) Albumin 3.8 g/dL (3.4-5.0) Albumin/Globulin Ratio 1.1 (1.0-1.7) White Blood Count 5.1 x10^3/uL (4.0-11.0) Red Blood Count 4.27 x10^6/uL (4.30-5.70) Hemoglobin 12.6 g/dL (13.0-17.5) Hematocrit 37.0 % (39.0-53.0) Mean Corpuscular Volume 87 fL (79-100) Mean Corpuscular Hemoglobin 30 pg (25-35) Mean Corpuscular Hemoglobin Concent 34 g/dL (31-37) Red Cell Distribution Width 14.8 % (11.5-14.5) Platelet Count 138 x10^3/uL (140-400) Neutrophils (%) (Auto) 76 % (31-73) Lymphocytes (%) (Auto) 13 % (24-48) Monocytes (%) (Auto) 10 % (0-9) Eosinophils (%) (Auto) 0 % (0-3) Basophils (%) (Auto) 1 % (0-3) Neutrophils # (Auto) 3.9 x10^3uL (1.8-7.7) Lymphocytes # (Auto) 0.7 x10^3/uL (1.0-4.8) Monocytes # (Auto) 0.5 x10^3/uL (0.0-1.1) Eosinophils # (Auto) 0.0 x10^3/uL (0.0-0.7) Basophils # (Auto) 0.0 x10^3/uL (0.0-0.2) Troponin I Quantitative 0.078 ng/mL (0.000-0.055) AV-Rab-A-Type Natriuretic Peptide 261 pg/mL (0-449) Vitamin B12 Level 233 pg/mL (247-911) Glucose (Fingerstick) 90 mg/dL (70-99) Urine Collection Type Unknown Urine Color Dk yellow Urine Clarity Clear Urine pH 5.5 Urine Specific [place] >=1.030 Urine Protein 30 mg/dL (NEG-TRACE) Urine Glucose (UA) Negative mg/dL (NEG) Urine Ketones (Stick) Trace mg/dL (NEG) Urine Blood Negative (NEG) Urine Nitrite Negative (NEG) Urine Bilirubin Small (NEG) Urine Urobilinogen Dipstick 1.0 mg/dL (0.2 mg/dL) Urine Leukocyte Esterase Negative (NEG) Urine RBC 0 /HPF (0-2) Urine WBC 0 /HPF (0-4) Urine Squamous Epithelial Cells None /LPF Urine Bacteria 0 /HPF (0-FEW) Urine Hyaline Casts Many /HPF Urine Mucus Marked /LPF Test 02/23/17 14:48 02/24/17 05:50 Creatine Kinase 1636 U/L (39-308) 1103 U/L (39-308) Troponin I Quantitative 0.067 ng/mL (0.000-0.055) 0.029 ng/mL (0.000-0.055) Thyroid Stimulating Hormone (TSH) 1.614 uIU/mL (0.358-3.74) White Blood Count 2.9 x10^3/uL (4.0-11.0) Red Blood Count 4.11 x10^6/uL (4.30-5.70) Hemoglobin 12.1 g/dL (13.0-17.5) Hematocrit 35.5 % (39.0-53.0) Mean Corpuscular Volume 86 fL (79-100) Mean Corpuscular Hemoglobin 30 pg (25-35) Mean Corpuscular Hemoglobin Concent 34 g/dL (31-37) Red Cell Distribution Width 15.3 % (11.5-14.5) Platelet Count 129 x10^3/uL (140-400) Neutrophils (%) (Auto) 47 % (31-73) Lymphocytes (%) (Auto) 33 % (24-48) Monocytes (%) (Auto) 17 % (0-9) Eosinophils (%) (Auto) 3 % (0-3) Basophils (%) (Auto) 0 % (0-3) Neutrophils # (Auto) 1.4 x10^3uL (1.8-7.7) Lymphocytes # (Auto) 1.0 x10^3/uL (1.0-4.8) Monocytes # (Auto) 0.5 x10^3/uL (0.0-1.1) Eosinophils # (Auto) 0.1 x10^3/uL (0.0-0.7) Basophils # (Auto) 0.0 x10^3/uL (0.0-0.2) Sodium Level 141 mmol/L (136-145) Potassium Level 3.2 mmol/L (3.5-5.1) Chloride Level 107 mmol/L (98-107) Carbon Dioxide Level 27 mmol/L (21-32) Anion Gap 7 (6-14) Blood Urea Nitrogen 25 mg/dL (8-26) Creatinine 1.3 mg/dL (0.7-1.3) Estimated GFR (Cockcroft-Gault) 64.6 Glucose Level 88 mg/dL (70-99) Calcium Level 8.7 mg/dL (8.5-10.1) Creatine Kinase MB (Mass) 4.1 ng/mL (0.0-3.6) Creatine Kinase MB Relative Index 0.4 % (0-4) Laboratory Tests Test 02/23/17 13:00 02/23/17 13:04 02/23/17 13:19 02/23/17 13:50 Sodium Level 143 mmol/L (136-145) Potassium Level 3.6 mmol/L (3.5-5.1) Chloride Level 106 mmol/L (98-107) Carbon Dioxide Level 26 mmol/L (21-32) Anion Gap 11 (6-14) Blood Urea Nitrogen 30 mg/dL (8-26) Creatinine 1.8 mg/dL (0.7-1.3) Estimated GFR (Cockcroft-Gault) 44.4 BUN/Creatinine Ratio 17 (6-20) Glucose Level 100 mg/dL (70-99) Calcium Level 9.6 mg/dL (8.5-10.1) Total Bilirubin 0.9 mg/dL (0.2-1.0) Aspartate Amino Transf (AST/SGOT) 58 U/L (15-37) Alanine Aminotransferase (ALT/SGPT) 27 U/L (16-63) Alkaline Phosphatase 55 U/L (46-116) C-Reactive Protein, Quantitative 2.6 mg/L (0-3.3) Total Protein 7.2 g/dL (6.4-8.2) Albumin 3.8 g/dL (3.4-5.0) Albumin/Globulin Ratio 1.1 (1.0-1.7) White Blood Count 5.1 x10^3/uL (4.0-11.0) Red Blood Count 4.27 x10^6/uL (4.30-5.70) Hemoglobin 12.6 g/dL (13.0-17.5) Hematocrit 37.0 % (39.0-53.0) Mean Corpuscular Volume 87 fL (79-100) Mean Corpuscular Hemoglobin 30 pg (25-35) Mean Corpuscular Hemoglobin Concent 34 g/dL (31-37) Red Cell Distribution Width 14.8 % (11.5-14.5) Platelet Count 138 x10^3/uL (140-400) Neutrophils (%) (Auto) 76 % (31-73) Lymphocytes (%) (Auto) 13 % (24-48) Monocytes (%) (Auto) 10 % (0-9) Eosinophils (%) (Auto) 0 % (0-3) Basophils (%) (Auto) 1 % (0-3) Neutrophils # (Auto) 3.9 x10^3uL (1.8-7.7) Lymphocytes # (Auto) 0.7 x10^3/uL (1.0-4.8) Monocytes # (Auto) 0.5 x10^3/uL (0.0-1.1) Eosinophils # (Auto) 0.0 x10^3/uL (0.0-0.7) Basophils # (Auto) 0.0 x10^3/uL (0.0-0.2) Troponin I Quantitative 0.078 ng/mL (0.000-0.055) OQ-Nxr-U-Type Natriuretic Peptide 261 pg/mL (0-449) Vitamin B12 Level 233 pg/mL (247-911) Glucose (Fingerstick) 90 mg/dL (70-99) Urine Collection Type Unknown Urine Color Dk yellow Urine Clarity Clear Urine pH 5.5 Urine Specific [place] >=1.030 Urine Protein 30 mg/dL (NEG-TRACE) Urine Glucose (UA) Negative mg/dL (NEG) Urine Ketones (Stick) Trace mg/dL (NEG) Urine Blood Negative (NEG) Urine Nitrite Negative (NEG) Urine Bilirubin Small (NEG) Urine Urobilinogen Dipstick 1.0 mg/dL (0.2 mg/dL) Urine Leukocyte Esterase Negative (NEG) Urine RBC 0 /HPF (0-2) Urine WBC 0 /HPF (0-4) Urine Squamous Epithelial Cells None /LPF Urine Bacteria 0 /HPF (0-FEW) Urine Hyaline Casts Many /HPF Urine Mucus Marked /LPF Test 02/23/17 14:48 02/24/17 05:50 Creatine Kinase 1636 U/L (39-308) 1103 U/L (39-308) Troponin I Quantitative 0.067 ng/mL (0.000-0.055) 0.029 ng/mL (0.000-0.055) Thyroid Stimulating Hormone (TSH) 1.614 uIU/mL (0.358-3.74) White Blood Count 2.9 x10^3/uL (4.0-11.0) Red Blood Count 4.11 x10^6/uL (4.30-5.70) Hemoglobin 12.1 g/dL (13.0-17.5) Hematocrit 35.5 % (39.0-53.0) Mean Corpuscular Volume 86 fL (79-100) Mean Corpuscular Hemoglobin 30 pg (25-35) Mean Corpuscular Hemoglobin Concent 34 g/dL (31-37) Red Cell Distribution Width 15.3 % (11.5-14.5) Platelet Count 129 x10^3/uL (140-400) Neutrophils (%) (Auto) 47 % (31-73) Lymphocytes (%) (Auto) 33 % (24-48) Monocytes (%) (Auto) 17 % (0-9) Eosinophils (%) (Auto) 3 % (0-3) Basophils (%) (Auto) 0 % (0-3) Neutrophils # (Auto) 1.4 x10^3uL (1.8-7.7) Lymphocytes # (Auto) 1.0 x10^3/uL (1.0-4.8) Monocytes # (Auto) 0.5 x10^3/uL (0.0-1.1) Eosinophils # (Auto) 0.1 x10^3/uL (0.0-0.7) Basophils # (Auto) 0.0 x10^3/uL (0.0-0.2) Sodium Level 141 mmol/L (136-145) Potassium Level 3.2 mmol/L (3.5-5.1) Chloride Level 107 mmol/L (98-107) Carbon Dioxide Level 27 mmol/L (21-32) Anion Gap 7 (6-14) Blood Urea Nitrogen 25 mg/dL (8-26) Creatinine 1.3 mg/dL (0.7-1.3) Estimated GFR (Cockcroft-Gault) 64.6 Glucose Level 88 mg/dL (70-99) Calcium Level 8.7 mg/dL (8.5-10.1) Creatine Kinase MB (Mass) 4.1 ng/mL (0.0-3.6) Creatine Kinase MB Relative Index 0.4 % (0-4) Medications Current Medications Sodium Chloride 500 ml @ 500 mls/hr 1X ONCE IV ; Start 02/23/17 at 14:30; Stop 02/23/17 at 15:29; Status DC Sodium Chloride 1,000 ml @ 100 mls/hr Q10H IV Last administered on 02/24/17 05:46; Start 02/23/17 at 15:00; Stop 02/24/17 at 14:59 Carbidopa/Levodopa (Sinemet 25/100) 2 tab TID PO Last administered on 08:35; Start 02/23/17 at 21:00 Pramipexole Dihydrochloride (miraPEX) 0.5 mg TID PO Last administered on 08:36; Start 02/23/17 at 21:00 Ondansetron HCl (Zofran) 4 mg PRN Q6HRS PRN IV NAUSEA/VOMITING; Start 02/23/17 at 15:30 Acetaminophen (Tylenol) 500 mg PRN QID PRN PO pain; Start 02/23/17 at 15:30 Heparin Sodium (Porcine) (Heparin Sq) 5,000 unit Q8HRS SQ Last administered on 02/24/17 05:50; Start 02/23/17 at 22:00 Potassium Chloride (Klor-Con) 40 meq 1X ONCE PO Last administered on 6/15/ 17at 10:45; Start 02/24/17 at 09:15; Stop 02/24/17 at 09:16; Status DC Cyanocobalamin (Vitamin B-12) 1,000 mcg DAILY PO ; Start 02/24/17 at 14:00 Active Scripts Active Reported Mirapex (Pramipexole Di-Hcl) 0.25 Mg Tablet 0.5 Mg PO TID Sinemet 25-100 Mg Tablet (Carbidopa/Levodopa) 1 Each Tablet 2 Tab PO TID Vitals/I & O Vital Sign - Last 24 Hours 02/23/17 02/23/17 02/23/17 02/23/17 17:30 17:35 19:00 20:00 Temp 98.1 98.3 98.1 98.3 Pulse 78 74 Resp 18 18 B/P (MAP) 136/77 (96) 101/62 (75) Pulse Ox 97 97 O2 Delivery Room Air Room Air Room Air Room Air 02/23/17 02/24/17 02/24/17 02/24/17 23:00 03:00 07:15 07:35 Temp 98.2 97.7 97.7 98.2 97.7 97.7 Pulse 68 69 65 Resp 18 18 20 B/P (MAP) 96/62 (73) 133/82 (99) 154/86 (108) Pulse Ox 100 98 O2 Delivery Room Air Room Air Room Air Room Air O2 Flow Rate 99.0 02/24/17 11:00 Temp 97.8 97.8 Pulse 62 Resp 18 B/P (MAP) 136/83 (100) Pulse Ox 98 O2 Delivery Room Air Intake and Output 02/23/17 02/23/17 02/24/17 15:00 23:00 07:00 Intake Total 300 ml Output Total 50 ml Balance 300 ml -50 ml EVER ARROYO MD Feb 24, 2017 12:26
[2017-02-24] MEDS: CYANOCOBALAMIN (VITAMIN B-12) 1,000 MCG TABLET. PO SCH (13:41)
[2017-02-24 15:01] VITALS: BP 128/71
[2017-02-24 19:00] VITALS: BP 169/82
[2017-02-24 23:00] VITALS: BP 107/76
[2017-02-25 03:00] VITALS: BP 138/77
[2017-02-25 05:24] LABS: BASO # 0.1 x10^3/uL (0.0-0.2); BASO % 2 % (0-3); EOS % 5 % (0-3); HEMATOCRIT 36.1 % (39.0-53.0); HEMOGLOBIN 12.5 g/dL (13.0-17.5); LYMPH # 0.7 x10^3/uL (1.0-4.8); LYMPH % 27 % (24-48); MEAN CORPUSCULAR HEMOGLOBIN 30 pg (25-35); MEAN CORPUSCULAR HGB CONC 35 g/dL (31-37); MEAN CORPUSCULAR VOLUME 86 fL (79-100); MONO % 14 % (0-9); NEUT % 53 % (31-73); PLATELET COUNT 138 x10^3/uL (140-400); WHITE BLOOD COUNT 2.8 x10^3/uL (4.0-11.0)
[2017-02-25] MEDS: HEPARIN PF for SUB-Q USE 5,000 UNIT/0.5 ML VIAL. SQ SCH ×2 (05:35→14:48)
[2017-02-25 06:04] LABS: CALCIUM 8.6 mg/dL (8.5-10.1); CREATININE 1.2 mg/dL (0.7-1.3); GFR 70.9; POTASSIUM 3.5 mmol/L (3.5-5.1)
[2017-02-25 07:00] VITALS: BP 163/87
[2017-02-25] MEDS: CARBIDOPA/LEVODOPA 25/100MG TABLET PO SCH ×2 (09:38→14:41)
[2017-02-25] MEDS: CYANOCOBALAMIN (VITAMIN B-12) 1,000 MCG TABLET. PO SCH (09:38)
[2017-02-25] MEDS: PRAMIPEXOLE 0.25 MG TABLET. PO SCH ×2 (10:00→14:42)
[2017-02-25 11:00] VITALS: BP 136/71
--- NOTE | 2017-02-25 13:34 | EEG ---
DATE OF SERVICE: 02/24/2017 EEG#: [id number] OBJECTIVE: This is a 76-year-old -[place] male patient with history of mental status changes. EEG was requested to evaluate cerebral activity. METHODS: Twenty electrodes were applied according to the international 10-20 electrode placement system. EKG monitoring, hyperventilation, intermittent photic stimulation, monopolar and bipolar montages are routinely utilized. The record was obtained on a digital system with video monitoring. MEDICATIONS: No anti-seizure medication. FINDINGS: 1. Background: The patient was recorded in the awake, drowsy, and sleep states. The overall background amplitude is 10-25 microvolts. A posterior dominant rhythm of 6-8 Hz is observed. 2. Abnormalities: No specific epileptiform discharge or electrographic seizure is seen. No focal or diffuse slowing. 3. Activation: Hyperventilation was performed with good efforts and normal response. Intermittent photic stimulation was performed with photic driving. IMPRESSION: This electroencephalogram is an abnormal study for the awake, drowsy, and sleep states. The posterior dominant rhythm of 6-8 Hz is slow for age. No focal, lateralizing, specific epileptiform discharge or electrographic seizure is seen. BRIANNA CUEVAS MD DR: Jairo JOB#: [id number] / [id number] LEEANNE
--- NOTE | 2017-02-25 13:53 | DS ---
DATE OF DISCHARGE: 02/25/2017 DISCHARGE DIAGNOSES: 1. Dehydration, likely due to poor oral intake. 2. Frequent falls, non-injury. 3. Generalized weakness and mild debility. 4. 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 5. Acute kidney injury due to vasomotor nephropathy, due to dehydration. 6. Mild troponin leak, likely due to renal failure, acute kidney injury. 7. Vitamin B12 deficiency. BRIEF HOSPITAL COURSE: 1. A 76-year-old male patient admitted by Dr. Tomlin for falls and elevated troponins and acute kidney injury. The patient was evaluated by Physical Therapy and Occupational Therapy and he was requiring help for mobility; however, he is stable enough to go home. 2. He had mild elevation of troponins, which has been there for a while. He had earlier troponin elevation and at that time, he had an echocardiogram, which showed normal LV ejection fraction and the patient currently denies any chest pain. He has been following with Dr. Contreras. 3. I did personally review the EKG, no acute ST-T wave changes noted. DISCHARGE PHYSICAL EXAMINATION: GENERAL: Alert, oriented x 3. HEART: S1, S2 present. LUNGS: Anterior chest clear. ABDOMEN: Soft, nontender, no organomegaly. EXTREMITIES: +1 edema. DISCHARGE DISPOSITION: Home. DISCHARGE CONDITION: Stable. DISCHARGE FOLLOWUP: With primary care doctor and Cardiology as scheduled. DISCHARGE MEDICATIONS: Reviewed and reconciled. Please see my discharge instructions. Total time spent for discharge is 31 minutes for patient education, counseling, and coordination of care. IVÁN NG MD DR: GOSIA/sammi JOB#: [id number] / [id number]
--- NOTE | 2017-02-25 14:02 | PDOC ---
PROGRESS NOTES Assessment Assessment PD Falls. Syncope Dementia. Renal failure. Dehydration. Vit B12 insufficiency. Right eye blindness. RECOMMENDATIONS/PLAN: Continue Sinemet 25/100 mg tid. Continue Mirapex 0.5 mg tid. Continue Vit B12 1 mg PO daily. Treat medical diseases. OT/PT EEG on 02/24: Posterior dominant rhythm was slow for age. No seizure activity. HISTORY OF THE PRESENT ILLNESS: 76-y-old AA male patient with above medical diseases had a fall on 02/23 to be brought to the ER of [facility]. He stated he remembered some of his fall as he was going down the stairs. His daught said he had about 5 falls this year so far. No injury noted. His PD symptoms are about the same and no worse per his daughter. He stated on 02/24 that he felt better. PAST MEDICAL HISTORY: Please see above. PAST SURGERY HISTORY: No major surgery recently. ALLERGY: Reviewed. MEDICATIONS: Refer to [facility] FAMILY HISTORY: Non contributory. SOCIAL HISTORY: Lives with his at home. Denies current substance and illicit drug use. REVIEW OF SYSTEMS: Constitutional: No malnutrition, weight loss, cachexia. Head: No recent traumatic brain or head injury. Skin: No edema, or rash. Ear: No infection. Eyes: Right eye blindness. Nose: No bleeding or purulent discharges. Hearing: Hearing decrease. Neck: No recent injury. Cardiac: No SC, arrhythmia.. Pulmonary: No COPD. GI: No GI ulcer, GI bleeding. Urinary/genital: UTI. Endocrinologic: No cousin face, craniofacial dysmorphism, polydactyly. Skeletomuscular: Generalized weakness. Neurological: see HP. Psychiatric: Denies drug use/abuse. Otherwise, not -iryyk review of systems. PHYSICAL EXAMINATION: General appearance is in no acute distress. HEENT: Normocephalic and nontraumatic. Right eye blindness. Nose, ears, and throat are unremarkable. Neck is supple. No lymphadenopathy. No crepitus. Cardiovascular: S1, S2, regular rate and rhythm. Pulmonary: Clear to auscultation bilaterally. Abdomen: Bowel sounds are positive. Extremities: No rash, lesions, but edema in LE. No restriction of range of motion NEUROLOGICAL EXAMINATION: Awake. Oriented to place and person but not to time. Left pupil reactive to light stimuli. Right eye blindness. EOMI. CN: no focal findings. Muscle tone: within normal. Muscle strength: 5 UE, 4 LE DTR: 2 UE, 0-1 LE Plantar reflex: Neutral response bilaterally Gait: not examined in bed. Sensory exam: no abnormal findings. No acute cerebellar signs elicited. F-T-N test fine. Objective Objective Vital Signs Date Time Temp Pulse Resp B/P (MAP) Pulse Ox O2 Delivery O2 Flow Rate FiO2 02/25/17 11:00 97.4 72 20 136/71 (92) 99 Room Air 97.4 02/25/17 08:20 99.0 Intake and Output 02/25/17 07:00 Intake Total 980 ml Balance 980 ml Intake Oral 980 ml # Voids 4 # Bowel Movements 1 Vitals Signs Vitals VS - Last 72 Hours, by Label Date Time Temp Pulse Resp B/P (MAP) Pulse Ox O2 Delivery O2 Flow Rate FiO2 02/25/17 11:00 97.4 72 20 136/71 (92) 99 Room Air 97.4 02/25/17 08:20 Room Air 99.0 02/25/17 07:00 97.5 68 20 163/87 (112) 98 Room Air 97.5 02/25/17 03:00 96.6 59 18 138/77 (97) 100 Room Air 96.6 02/24/17 23:00 97.9 63 20 107/76 (86) 100 Room Air 97.9 02/24/17 20:00 Room Air 02/24/17 19:00 97.6 65 18 169/82 (111) 99 Room Air 97.6 02/24/17 15:01 97.8 58 18 128/71 (90) 99 Room Air 97.8 02/24/17 11:00 97.8 62 18 136/83 (100) 98 Room Air 97.8 02/24/17 07:35 Room Air 02/24/17 07:15 97.7 65 20 154/86 (108) Room Air 99.0 97.7 Laboratory Laboratory Laboratory Tests Test 02/25/17 04:29 White Blood Count 2.8 x10^3/uL (4.0-11.0) Red Blood Count 4.20 x10^6/uL (4.30-5.70) Hemoglobin 12.5 g/dL (13.0-17.5) Hematocrit 36.1 % (39.0-53.0) Mean Corpuscular Volume 86 fL (79-100) Mean Corpuscular Hemoglobin 30 pg (25-35) Mean Corpuscular Hemoglobin Concent 35 g/dL (31-37) Red Cell Distribution Width 15.0 % (11.5-14.5) Platelet Count 138 x10^3/uL (140-400) Neutrophils (%) (Auto) 53 % (31-73) Lymphocytes (%) (Auto) 27 % (24-48) Monocytes (%) (Auto) 14 % (0-9) Eosinophils (%) (Auto) 5 % (0-3) Basophils (%) (Auto) 2 % (0-3) Neutrophils # (Auto) 1.5 x10^3uL (1.8-7.7) Lymphocytes # (Auto) 0.7 x10^3/uL (1.0-4.8) Monocytes # (Auto) 0.4 x10^3/uL (0.0-1.1) Eosinophils # (Auto) 0.1 x10^3/uL (0.0-0.7) Basophils # (Auto) 0.1 x10^3/uL (0.0-0.2) Sodium Level 144 mmol/L (136-145) Potassium Level 3.5 mmol/L (3.5-5.1) Chloride Level 108 mmol/L (98-107) Carbon Dioxide Level 30 mmol/L (21-32) Anion Gap 6 (6-14) Blood Urea Nitrogen 17 mg/dL (8-26) Creatinine 1.2 mg/dL (0.7-1.3) Estimated GFR (Cockcroft-Gault) 70.9 Glucose Level 80 mg/dL (70-99) Calcium Level 8.6 mg/dL (8.5-10.1) Microbiology 02/23/17 Blood Culture - Preliminary, Resulted NO GROWTH AFTER 2 DAYS Comment Review of Relevant I have reviewed the following items ramo (where applicable) has been applied. BRIANNA CUEVAS MD Feb 25, 2017 14:02
[2017-02-25 15:00] VITALS: BP 138/70
== END 2017-02-25 16:15 | disposition home health service (06) | DRG 683 ==
LOC: ER 12:01 → 4 NORTH 14:30
PROVIDERS: ADMIT Internal Medicine; ATTEND Internal Medicine
DX: N17.0 Acute kidney failure with tubular necrosis (principal); E44.0 Moderate protein-calorie malnutrition; E53.8 Deficiency of other specified B group vitamins; G20 Parkinson's disease; Y93.01 Activity, walking, marching and hiking; W10.9XXA Fall (on) (from) unspecified stairs and steps, initial encounter; H54.41 Blindness, right eye, normal vision left eye; F02.80 Dementia in other diseases classified elsewhere, unspecified severity, without behavioral disturbance, psychotic disturbance, mood disturbance, and anxiety; N18.2 Chronic kidney disease, stage 2 (mild); R29.6 Repeated falls; E86.0 Dehydration; Y92.89 Other specified places as the place of occurrence of the external cause; Y99.2 Volunteer activity; Z79.899 Other long term (current) drug therapy; Z79.1 Long term (current) use of non-steroidal anti-inflammatories (NSAID); Z68.23 Body mass index [BMI] 23.0-23.9, adult
CPT/HCPCS: 36415; 70450; 71010; 72125; 80048; 80053; 81001; 82550; 82553; 82607; 82962; 83880; 84443; 84484; 85027; 86140; 87040; 93005; 95816; J7030; 97116; 97535; 99285-25